=== PATIENT | male | born 1945 | race Caucasian/White ===

== ENCOUNTER → 2016-05-27 | Outpatient (CLI) | payer BC ==
--- NOTE | 2016-05-27 10:29 | XR ---
EXAMINATION TYPE: XR ribs LT w pa chest xray DATE OF EXAM: 05/27/2016 10:20 AM COMPARISON: NONE HISTORY: Chest pain TECHNIQUE: Frontal view of the chest and 4 views of the left ribs are submitted. FINDINGS: There is no pneumothorax. Biapical pleural thickening. Hypertrophic and degenerative change of the spine. No consolidation. Rib cage is intact. IMPRESSION: 1. No acute rib fracture.
== END | disposition home or self-care (01) ==
LOC: RADXRMAIN 10:00
PROVIDERS: ATTEND Family Medicine
DX: R07.89 Other chest pain (principal)

== ENCOUNTER 2016-10-23 20:06 | Inpatient (IN) | payer BC, MEDICARE ==
[2016-10-23] MEDS ORDERED: NITROGLYCERIN SL TABS 0.4 MG TAB SUBLINGUAL STA (20:35)
[2016-10-23 20:48] LABS: Basophils # (A) 0.1 k/uL (0-0.2); Basophils % (A) 1 %; CH 31.9; CHCM 35.4; Eosinophils # (A) 0.1 k/uL (0-0.7); Eosinophils % (A) 3 %; HCT 46.6 % (39.0-53.0); HDW 2.82; Luc % (Auto) 2; Lymphocytes # (A) 1.7 k/uL (1.0-4.8); Lymphocytes % (A) 39 %; MCH 31.2 pg (25.0-35.0); MCHC 34.4 g/dL (31.0-37.0); MCV 90.6 fL (80.0-100.0); Mean Platelet Volume 7.3; Monocytes # (A) 0.2 k/uL (0-1.0); Monocytes % (A) 5 %; Neutrophils # (A) 2.2 k/uL (1.3-7.7); Neutrophils % (A) 50 %; RBC 5.15 m/uL (4.30-5.90); RDW 14.5 % (11.5-15.5); WBC 4.5 k/uL (3.8-10.6); WBC (Perox) 4.25
--- NOTE | 2016-10-23 20:50 | XR ---
EXAMINATION TYPE: XR chest 2V DATE OF EXAM: 10/23/2016 COMPARISON: NONE HISTORY: Chest pain TECHNIQUE: Frontal and lateral views of the chest are obtained. FINDINGS: Heart and mediastinum are normal. Lungs are clear. Diaphragm is normal. There are chest le ads. Bony thorax is intact. IMPRESSION: Normal chest
[2016-10-23 20:56] LABS: INR 1.1 (<1.2); Prothrombin Time 11.4 sec (9.0-12.0)
[2016-10-23 20:59] LABS: ALT 37 U/L (21-72); AST 29 U/L (17-59); Alkaline Phosphatase 58 U/L (38-126); Anion Gap 12 mmol/L; Blood Urea Nitrogen 18 mg/dL (9-20); Calcium 9.5 mg/dL (8.4-10.2); Carbon Dioxide 26 mmol/L (22-30); Chloride 107 mmol/L (98-107); Glucose 116 mg/dL (74-99); Magnesium 2.2 mg/dL (1.6-2.3); Non-African American GFR(MDRD) >60 (>60 ml/min/1.73 sqM); Potassium 3.7 mmol/L (3.5-5.1); Sodium 145 mmol/L (137-145); Total Bilirubin 0.4 mg/dL (0.2-1.3); Total Protein 6.6 g/dL (6.3-8.2)
[2016-10-23] MEDS ORDERED: SODIUM CHLORIDE 0.9% 1,000 ML IV ONE (21:03)
[2016-10-23 21:10] LABS: Creatine Kinase 56 U/L (55-170)
[2016-10-23 21:23] LABS: Troponin I <0.012 ng/mL (0.000-0.034)
[2016-10-23] MEDS ORDERED: NITROGLYCERIN SL TABS 0.4 MG TAB SUBLINGUAL PRN (21:51)
[2016-10-23] MEDS ORDERED: HEPARIN SODIUM,PORCINE 5,000 UNIT/ML 1 ML VIAL IV ONE (21:51)
[2016-10-23] MEDS ORDERED: HEPARIN SODIUM,PORCINE/D5W PMX 25,000 UNIT in DEXTROSE/WATER 1 500ML.BAG IV SCH (22:00)
--- NOTE | 2016-10-23 22:04 | ED ---
General Adult HPI - General Chief complaint: Chest Pain Stated complaint: chest pain Time Seen by Provider: 10/23/16 20:10 Source: patient, family, RN notes reviewed Mode of arrival: ambulatory Limitations: no limitations - History of Present Illness Initial comments: 71-year-old male with no significant past medical history presents with an episode of chest pain that began about 6:30 PM. Patient was walking briskly noted a central substernal chest pressure which radiated to the bilateral shoulders. Is also associated with some dizziness. Patient denies current chest pain at the time of my evaluation. He also reports similar chest pain 3- 4 days ago but did not seek medical treatment at that time. Patient took 324 mg of aspirin prior to arrival. Denies cough. Denies fever or chills. Patient states he had a stress test about 25 years ago. No family history of coronary artery disease, he is a nonsmoker. - Related Data Home Medications Medication Instructions Recorded Confirmed Alprostadil [Caverject] 10 mcg IC Q48H PRN 10/23/16 10/23/16 Krill Oil 500 mg PO DAILY 10/23/16 10/23/16 Multivitamin [Men's Multi-Vitamin] 1 tab PO DAILY 10/23/16 10/23/16 ZOLMitriptan [ZOLMitriptan Odt] 5 mg PO BID PRN 10/23/16 10/23/16 Allergies Allergy/AdvReac Type Severity Reaction Status Date / Time iodine Allergy Unknown Verified 10/23/16 20:33 Iodinated Contrast- Oral and AdvReac Unknown Verified 10/23/16 20:33 IV Dye [Iodinated Contrast Media - IV Dye] Review of Systems ROS Statement: Those systems with pertinent positive or pertinent negative responses have been documented in the HPI. ROS Other: All systems not noted in ROS Statement are negative. Past Medical History Past Medical History: No Reported History, Prostate Disorder Additional Past Medical History / Comment(s): prostate cancer History of Any Multi-Drug Resistant Organisms: None Reported Past Surgical History: No Surgical Hx Reported Past Psychological History: No Psychological Hx Reported Smoking Status: Never smoker Past Alcohol Use History: None Reported Past Drug Use History: None Reported General Exam Limitations: no limitations General appearance: alert, in no apparent distress Head exam: Present: atraumatic, normocephalic Eye exam: Present: normal appearance, PERRL ENT exam: Present: normal exam, mucous membranes dry Neck exam: Present: normal inspection. Absent: tenderness, meningismus Respiratory exam: Present: normal lung sounds bilaterally. Absent: respiratory distress, wheezes Cardiovascular Exam: Present: regular rate, normal rhythm, normal heart sounds GI/Abdominal exam: Present: soft. Absent: distended, tenderness Rectal exam: Present: normal inspection, heme (-) stool Extremities exam: Present: normal inspection, normal capillary refill, other (2 + bilateral pedal pulses) Back exam: Present: normal inspection, full ROM Neurological exam: Present: alert, oriented X3 Psychiatric exam: Present: normal affect, normal mood Skin exam: Present: warm, dry. Absent: cyanosis, diaphoretic Course Vital Signs 10/23/16 10/23/16 10/23/16 20:12 20:55 20:59 Temperature 98.2 F Pulse Rate 90 Respiratory 17 Rate Blood Pressure 189/103 164/88 140/85 O2 Sat by Pulse 97 Oximetry - Reevaluation(s) Reevaluation #1: 10/23/16 22:00 Patient remains chest pain-free in the emergency department EKG Findings - EKG Comments: EKG Findings:: EKG shows normal sinus rhythm, ventricular rate 68, NE interval 148, QRS duration 84, QTC 418, there was J-point elevation in leads V2 and V3, no signs of acute ischemia Medical Decision Making - Medical Decision Making 71-year-old male presents with chest pain radiating to bilateral shoulders associated with some dizziness. The second episode of exertional chest pain. Patient has no known history of angina or coronary artery disease. Chest pain is typical in nature. An concerning for anginal pain. He was chest pain-free in the emergency department. He took aspirin prior to arrival he was given sublingual nitroglycerin, Hemoccult is negative. Patient is started on heparin drip. EKG nonischemic. Chest x-ray shows no acute process, laboratory studies including initial cardiac enzymes are unremarkable. Case is discussed with cardiology on-call. Patient will be kept nothing by mouth awaiting cardiology evaluation. Diagnosis: Unstable angina - Lab Data Result diagrams: 10/23/16 20:15 10/23/16 20:15 Lab Results 10/23/16 10/23/16 10/23/16 Range/Units 20:15 20:15 20:15 WBC 4.5 (3.8-10.6) k/uL RBC 5.15 (4.30-5.90) m/uL Hgb 16.0 (13.0-17.5) gm/dL Hct 46.6 (39.0-53.0) % MCV 90.6 (80.0-100.0) fL MCH 31.2 (25.0-35.0) pg MCHC 34.4 (31.0-37.0) g/dL RDW 14.5 (11.5-15.5) % Plt Count 159 (150-450) k/uL Neutrophils % 50 % Lymphocytes % 39 % Monocytes % 5 % Eosinophils % 3 % Basophils % 1 % Neutrophils # 2.2 (1.3-7.7) k/uL Lymphocytes # 1.7 (1.0-4.8) k/uL Monocytes # 0.2 (0-1.0) k/uL Eosinophils # 0.1 (0-0.7) k/uL Basophils # 0.1 (0-0.2) k/uL PT (9.0-12.0) sec INR (<1.2) APTT (22.0-30.0) sec Sodium 145 (137-145) mmol/L Potassium 3.7 (3.5-5.1) mmol/L Chloride 107 (98-107) mmol/L Carbon Dioxide 26 (22-30) mmol/L Anion Gap 12 mmol/L BUN 18 (9-20) mg/dL Creatinine 0.90 (0.66-1.25) mg/dL Est GFR (MDRD) Af Amer >60 (>60 ml/min/1.73 sqM) Est GFR (MDRD) Non-Af >60 (>60 ml/min/1.73 sqM) Glucose 116 H (74-99) mg/dL Calcium 9.5 (8.4-10.2) mg/dL Magnesium 2.2 (1.6-2.3) mg/dL Total Bilirubin 0.4 (0.2-1.3) mg/dL AST 29 (17-59) U/L ALT 37 (21-72) U/L Alkaline Phosphatase 58 (38-126) U/L Total Creatine Kinase 56 (55-170) U/L CK-MB (CK-2) 1.0 (0.0-2.4) ng/mL CK-MB (CK-2) Rel Index 1.8 Troponin I <0.012 (0.000-0.034) ng/mL Total Protein 6.6 (6.3-8.2) g/dL Albumin 4.1 (3.5-5.0) g/dL Stool Occult Blood (Negative) 10/23/16 10/23/16 Range/Units 20:15 21:13 WBC (3.8-10.6) k/uL RBC (4.30-5.90) m/uL Hgb (13.0-17.5) gm/dL Hct (39.0-53.0) % MCV (80.0-100.0) fL MCH (25.0-35.0) pg MCHC (31.0-37.0) g/dL RDW (11.5-15.5) % Plt Count (150-450) k/uL Neutrophils % % Lymphocytes % % Monocytes % % Eosinophils % % Basophils % % Neutrophils # (1.3-7.7) k/uL Lymphocytes # (1.0-4.8) k/uL Monocytes # (0-1.0) k/uL Eosinophils # (0-0.7) k/uL Basophils # (0-0.2) k/uL PT 11.4 (9.0-12.0) sec INR 1.1 (<1.2) APTT 26.0 (22.0-30.0) sec Sodium (137-145) mmol/L Potassium (3.5-5.1) mmol/L Chloride (98-107) mmol/L Carbon Dioxide (22-30) mmol/L Anion Gap mmol/L BUN (9-20) mg/dL Creatinine (0.66-1.25) mg/dL Est GFR (MDRD) Af Amer (>60 ml/min/1.73 sqM) Est GFR (MDRD) Non-Af (>60 ml/min/1.73 sqM) Glucose (74-99) mg/dL Calcium (8.4-10.2) mg/dL Magnesium (1.6-2.3) mg/dL Total Bilirubin (0.2-1.3) mg/dL AST (17-59) U/L ALT (21-72) U/L Alkaline Phosphatase (38-126) U/L Total Creatine Kinase (55-170) U/L CK-MB (CK-2) (0.0-2.4) ng/mL CK-MB (CK-2) Rel Index Troponin I (0.000-0.034) ng/mL Total Protein (6.3-8.2) g/dL Albumin (3.5-5.0) g/dL Stool Occult Blood Negative (Negative) Disposition Clinical Impression: Unstable angina pectoris Disposition: ADMITTED IP TO THIS HOSP Condition: Stable Referrals: Jackie Maddox III, MD [Primary Care Provider] - 1-2 days Decision to Admit Reason: Admit from EC Decision Date: 10/23/16 Decision Time: 22:03
[2016-10-23] MEDS ORDERED: NITROGLYCERIN-D5W PMX 50 MG in DEXTROSE/WATER 1 250ML.BAG IV ONE (22:06)
[2016-10-23] MEDS: SODIUM CHLORIDE 0.9% 1,000 ML IV SCH (22:35)
[2016-10-23 23:00] VITALS: BMI 26.1
[2016-10-24] MEDS ORDERED: ACETAMINOPHEN TAB 325 MG TAB PO PRN (01:11)
[2016-10-24 01:56] LABS: Creatine Kinase 45 U/L (55-170)
[2016-10-24 02:09] LABS: Troponin I <0.012 ng/mL (0.000-0.034)
[2016-10-24] MEDS ORDERED: IBUPROFEN 400 MG TAB PO PRN (03:46)
[2016-10-24] MEDS: SUMAtriptan SUCCINATE 50 MG TAB PO PRN (04:53)
[2016-10-24] MEDS: NITROGLYCERIN OINT 1 INCH/GM PACKET TOPICAL SCH ×4 (04:55→22:39)
[2016-10-24] MEDS ORDERED: HEPARIN SODIUM,PORCINE 5,000 UNIT/ML 1 ML VIAL IV PRN (05:33)
[2016-10-24 06:32] LABS: Cholesterol 139 mg/dL (<200); HDL Cholesterol 27 mg/dL (40-60)
[2016-10-24] MEDS: SODIUM CHLORIDE 0.9% 1,000 ML IV SCH (08:00)
[2016-10-24] MEDS: ASPIRIN 325 MG TAB PO SCH (08:00)
[2016-10-24 09:14] LABS: Creatine Kinase 48 U/L (55-170)
--- NOTE | 2016-10-24 09:30 | P.CRDCN ---
History of Present Illness Consult date: 10/24/16 Requesting physician: Liana Xavier Consult reason: chest pain Chief complaint: Chest pain History of present illness: This is a pleasant 71-year-old gentleman with no prior documented history of hypertension, no diabetes, no hyperlipidemia, he is a nonsmoker, no family history of premature coronary artery disease. He presents to the hospital with symptoms of midsternal chest tightness. Patient states that he was at a [employer] [place], he was walking to go to the service, when he developed tightness in the center of his chest and across the entire chest. He states that he rested a few minutes and symptoms seemed to subside, he states then that he proceeded to try to walk back to his camper and the tightness resumed, a female who is an ICU nurse apparently seen him at that time, and recommended that he go to the emergency room for further evaluation. Patient states that 2- 3 days prior he had a similar episode however it only lasted briefly and dissipated. Patient denies any associated shortness of breath, no diaphoresis, no nausea. EKG on arrival here showed a normal sinus rhythm with mild ST-T wave changes in the anterior leads. Chest x-ray normal. Blood pressure on arrival here 189/103, heart rate in the 90s, 97% on room air. Chest x-ray this morning 156/80 with a heart rate in the 70s. CBC normal, potassium 3.7, BUN 18 , creatinine 0.9. Troponins negative 2. Stool for occult blood is negative. At the time of my examination this morning, the patient is currently chest pain- free. Past Medical History Past Medical History: Prostate Disorder Additional Past Medical History / Comment(s): prostate cancer History of Any Multi-Drug Resistant Organisms: None Reported Past Surgical History: No Surgical Hx Reported Past Psychological History: No Psychological Hx Reported Smoking Status: Former smoker Past Alcohol Use History: None Reported Additional Past Alcohol Use History / Comment(s): smoke for 1 year in his 20s then quit Past Drug Use History: None Reported - Past Family History Father Additional Family Medical History / Comment(s): dad living alone at 94, pacemaker Mother Family Medical History: Dementia Medications and Allergies Home Medications Medication Instructions Recorded Confirmed Type Alprostadil [Caverject] 10 mcg IC Q48H PRN 10/23/16 10/23/16 History Krill Oil 500 mg PO DAILY 10/23/16 10/23/16 History Multivitamin [Men's Multi-Vitamin] 1 tab PO DAILY 10/23/16 10/23/16 History ZOLMitriptan [ZOLMitriptan Odt] 5 mg PO BID PRN 10/23/16 10/23/16 History Allergies Allergy/AdvReac Type Severity Reaction Status Date / Time iodine Allergy Unknown Verified 10/23/16 20:33 Iodinated Contrast- Oral and AdvReac Unknown Verified 10/23/16 20:33 IV Dye [Iodinated Contrast Media - IV Dye] Physical Exam Vitals: Vital Signs Temp Pulse Pulse Resp BP BP Pulse Ox 10/24/16 08:00 97.9 F 70 18 157/82 97 10/24/16 04:00 58 L 18 125/64 98 10/24/16 01:15 66 116/76 97 10/24/16 00:00 96.1 F L 58 L 18 125/70 97 10/23/16 22:39 63 18 131/71 98 10/23/16 22:34 98.0 F 75 16 139/80 98 10/23/16 20:59 140/85 10/23/16 20:55 164/88 10/23/16 20:12 98.2 F 90 17 189/103 97 Intake and Output 10/23/16 10/24/16 10/24/16 22:59 06:59 14:59 Intake Total 967 Output Total 300 Balance 667 Intake: IV 963 Heparin Sodium,Porcine/ 160 D5w Pmx 25,000 unit In Dextrose/Water 1 500ml. bag @ 12 UNITS/KG/HR 19. 59 mls/hr IV .Q24H [facility] Rx #:[id number] Nitroglycerin-D5w Pmx 50 3 mg In Dextrose/Water 1 250ml.bag @ 5 MCG/MIN 1.5 mls/hr IV .Q24H [facility] Rx#: [id number] Sodium Chloride 0.9% 1, 800 000 ml @ 100 mls/hr IV . Q10H [facility] Rx#:[id number] Intake, IV Titration 4 Amount Nitroglycerin-D5w Pmx 50 4 mg In Dextrose/Water 1 250ml.bag @ 5 MCG/MIN 1.5 mls/hr IV .Q24H [facility] Rx#: [id number] Output: Urine 300 Other: Voiding Method Toilet Toilet Urinal Urinal # Voids 1 Weight 82.5 kg 82.5 kg PHYSICAL EXAMINATION: HEENT: Head is atraumatic, normocephalic. Pupils equal, round. Neck is supple. There is no elevated jugular venous pressure. HEART EXAMINATION: Heart S1, S2 normal. No murmur or gallop heard. CHEST EXAMINATION: Lungs are clear to auscultation and precussion. No chest wall tenderness is noted on palpation or with deep breathing. ABDOMEN: Soft, nontender. Bowel sounds are heard. No organomegaly noted. EXTREMITIES: 2+ peripheral pulses with no evidence of peripheral edema and no calf tenderness noted. NEUROLOGIC patient is awake, alert and oriented -3. . Results 10/23/16 20:15 10/23/16 20:15 Cardiac Enzymes 10/23/16 10/23/16 10/24/16 Range/Units 20:15 20:15 01:19 AST 29 (17-59) U/L CK-MB (CK-2) 1.0 1.0 (0.0-2.4) ng/mL Troponin I <0.012 <0.012 (0.000-0.034) ng/mL Coagulation 10/23/16 10/24/16 Range/Units 20:15 05:50 PT 11.4 (9.0-12.0) sec APTT 26.0 72.6 H (22.0-30.0) sec Lipids 10/24/16 Range/Units 05:48 Triglycerides 121 (<150) mg/dL Cholesterol 139 (<200) mg/dL HDL Cholesterol 27 L (40-60) mg/dL CBC 10/23/16 Range/Units 20:15 WBC 4.5 (3.8-10.6) k/uL RBC 5.15 (4.30-5.90) m/uL Hgb 16.0 (13.0-17.5) gm/dL Hct 46.6 (39.0-53.0) % Plt Count 159 (150-450) k/uL Comprehensive Metabolic Panel 10/23/16 Range/Units 20:15 Sodium 145 (137-145) mmol/L Potassium 3.7 (3.5-5.1) mmol/L Chloride 107 (98-107) mmol/L Carbon Dioxide 26 (22-30) mmol/L BUN 18 (9-20) mg/dL Creatinine 0.90 (0.66-1.25) mg/dL Glucose 116 H (74-99) mg/dL Calcium 9.5 (8.4-10.2) mg/dL AST 29 (17-59) U/L ALT 37 (21-72) U/L Alkaline Phosphatase 58 (38-126) U/L Total Protein 6.6 (6.3-8.2) g/dL Albumin 4.1 (3.5-5.0) g/dL Current Medications Generic Name Dose Route Start Last Admin Trade Name Freq PRN Reason Stop Dose Admin Acetaminophen 650 mg 10/24/16 01:11 10/24/16 01:17 Tylenol Tab PO 650 mg Q6HR PRN Administration Fever and/ or Pain Aspirin 325 mg 10/24/16 09:00 10/24/16 08:00 Aspirin PO 325 mg DAILY TEE Administration Atorvastatin Calcium 40 mg 10/24/16 21:00 Lipitor PO HS [facility] Heparin Sodium (Porcine) 0 unit 10/24/16 05:33 Heparin IV PER PROTOCOL PRN Low PTT Protocol Heparin Sodium/Dextrose 25,000 500 mls @ 19.59 mls/hr 10/23/16 22:00 22:35 unit/ IV Solution IV 12 units/kg/hr .Q24H TEE 19.59 mls/hr Protocol Administration 12 UNITS/KG/HR Sodium Chloride 1,000 mls @ 100 mls/hr 10/23/16 22:00 10/24/16 08:00 Saline 0.9% IV 100 mls/hr .Q10H TEE Administration Ibuprofen 600 mg 10/24/16 03:46 Motrin PO Q6HR PRN Pain Nitroglycerin 0.4 mg 10/23/16 21:51 Nitrostat SUBLINGUAL Q5M PRN Chest Pain Nitroglycerin 1 inch 10/24/16 06:00 10/24/16 04:55 Nitro-Bid Oint TOPICAL Not Given Q6HR [facility] Sumatriptan Succinate 50 mg 10/24/16 03:42 10/24/16 04:53 Imitrex PO 50 mg BID PRN Administration Migraine Headache Intake and Output 10/23/16 10/24/16 10/24/16 22:59 06:59 14:59 Intake Total 967 Output Total 300 Balance 667 Intake: IV 963 Heparin Sodium,Porcine/ 160 D5w Pmx 25,000 unit In Dextrose/Water 1 500ml. bag @ 12 UNITS/KG/HR 19. 59 mls/hr IV .Q24H [facility] Rx #:[id number] Nitroglycerin-D5w Pmx 50 3 mg In Dextrose/Water 1 250ml.bag @ 5 MCG/MIN 1.5 mls/hr IV .Q24H [facility] Rx#: [id number] Sodium Chloride 0.9% 1, 800 000 ml @ 100 mls/hr IV . Q10H [facility] Rx#:[id number] Intake, IV Titration 4 Amount Nitroglycerin-D5w Pmx 50 4 mg In Dextrose/Water 1 250ml.bag @ 5 MCG/MIN 1.5 mls/hr IV .Q24H [facility] Rx#: [id number] Output: Urine 300 Other: Voiding Method Toilet Toilet Urinal Urinal # Voids 1 Weight 82.5 kg 82.5 kg 10/23/16 20:15 10/23/16 20:15 EKG Interpretations (text) EKG shows a normal sinus rhythm with nonspecific ST-T wave changes in the anterior leads. Assessment and Plan Plan: Assessment and plan #1 symptoms of midsternal chest tightness, troponins negative 2. EKG shows a normal sinus rhythm with nonspecific ST-T wave changes in the anterior leads. #2 cardiac risk factors negative for hypertension, no diabetes, no hyperlipidemia, patient is a nonsmoker, no family history of premature coronary artery disease. #3 accelerated hypertension Plan We will request an echocardiogram with Doppler study be performed. We will also start the patient on OSWALDO inhibitor for hypertension. Continue IV heparin and Nitropaste. Further recommendations to follow. DNP note has been reviewed, I agree with a documented findings and plan of care. Patient was seen and examined.
[2016-10-24 09:50] LABS: Troponin I <0.012 ng/mL (0.000-0.034)
[2016-10-24] MEDS: LISINOPRIL 5 MG TAB PO SCH (11:23)
--- NOTE | 2016-10-24 13:58 | NM ---
EXAMINATION TYPE: NM stress cardiolite complete DATE OF EXAM: 10/24/2016 COMPARISON: Chest x-ray 10/23/2016 HISTORY: Chest pain TECHNIQUE: After the intravenous administration of 10.56 mCi Tc 99m Sestamibi - Rest images obtained 45 minutes post injection. The patient exercised using a CARLY protocol and 1 minute prior to peak exercise was injected with 25.4 mCi Tc 99m Sestamibi - Stress images obtained 20 minutes post inject ion. FINDINGS: Targeted heart rate was achieved during performance of the study. Review of stress and rest SPECT yovani ges demonstrates some mild decreased radiopharmaceutical uptake along the anteroseptal left ventricle on stress images as compared to rest images as well as along the inferolateral left ventricle on str ess as compared to rest images. Gated analysis shows normal wall motion with an estimated left ventr icular ejection fraction of 63 %. IMPRESSION: Findings may be indicative of stress induced left ventricular myocardial ischemia. Normal to slightly elevated ejection fraction however.
[2016-10-24] MEDS ORDERED: ALPRAZolam 0.5 MG TAB PO PRN (14:28)
[2016-10-24] MEDS ORDERED: ASPIRIN 325 MG TAB PO STA (14:28)
[2016-10-24] MEDS ORDERED: ATORVASTATIN 80 MG TAB PO STA (14:28)
[2016-10-24] MEDS ORDERED: ALPRAZolam 0.25 MG TAB PO PRN (14:28)
[2016-10-24] MEDS ORDERED: SODIUM CHLORIDE 0.9% 1,000 ML in EMPTY BAG 1 BAG IV ONE (14:28)
--- NOTE | 2016-10-24 16:40 | P.HPIM ---
History of Present Illness H&P Date: 10/24/16 Chief Complaint: Chest pain She is a 71-year-old gentleman with history of essential hypertension comes in to the hospital with complains of intermittent chest pain that has been ongoing for the last 7 days. Patient states that initially he noted a midsternal burning pain that resolved with rest thereafter went on to continuing moving his trailer which included some physical work Patient stated that he noted recurrence of the symptoms with worsening with the exertion and relieved with rest Patient comes in the hospital with concern for heart disease Patient underwent an EKG which the did show some nonspecific ST-T wave changes however nothing meets criteria Patient's cardiac enzymes were not elevated Patient was heparinized and triaged to the floor Patient underwent a stress test. Patient continues to have some chest pain that is atypical at this time Review of Systems All systems: negative (Noted in HPI) Past Medical History Past Medical History: Prostate Disorder Additional Past Medical History / Comment(s): prostate cancer History of Any Multi-Drug Resistant Organisms: None Reported Past Surgical History: No Surgical Hx Reported Past Psychological History: No Psychological Hx Reported Smoking Status: Former smoker Past Alcohol Use History: None Reported Additional Past Alcohol Use History / Comment(s): smoke for 1 year in his 20s then quit Past Drug Use History: None Reported - Past Family History Father Additional Family Medical History / Comment(s): dad living alone at 94, pacemaker Mother Family Medical History: Dementia Medications and Allergies Home Medications Medication Instructions Recorded Confirmed Type Alprostadil [Caverject] 10 mcg IC Q48H PRN 10/23/16 10/23/16 History Krill Oil 500 mg PO DAILY 10/23/16 10/23/16 History Multivitamin [Men's Multi-Vitamin] 1 tab PO DAILY 10/23/16 10/23/16 History ZOLMitriptan [ZOLMitriptan Odt] 5 mg PO BID PRN 10/23/16 10/23/16 History Allergies Allergy/AdvReac Type Severity Reaction Status Date / Time iodine Allergy Unknown Verified 10/23/16 20:33 Iodinated Contrast- Oral and AdvReac Unknown Verified 10/23/16 20:33 IV Dye [Iodinated Contrast Media - IV Dye] Physical Exam Vitals: Vital Signs Temp Pulse Pulse Resp BP BP Pulse Ox 10/24/16 11:15 97.4 F L 69 18 169/82 98 10/24/16 08:00 97.9 F 70 18 157/82 97 10/24/16 04:00 58 L 18 125/64 98 10/24/16 01:15 66 116/76 97 10/24/16 00:00 96.1 F L 58 L 18 125/70 97 10/23/16 22:39 63 18 131/71 98 10/23/16 22:34 98.0 F 75 16 139/80 98 10/23/16 20:59 140/85 10/23/16 20:55 164/88 10/23/16 20:12 98.2 F 90 17 189/103 97 Intake and Output 10/24/16 10/24/16 10/24/16 06:59 14:59 22:59 Intake Total 967 Output Total 300 425 Balance 667 -425 Intake: IV 963 Heparin Sodium,Porcine/ 160 D5w Pmx 25,000 unit In Dextrose/Water 1 500ml. bag @ 12 UNITS/KG/HR 19. 59 mls/hr IV .Q24H [facility] Rx #:[id number] Nitroglycerin-D5w Pmx 50 3 mg In Dextrose/Water 1 250ml.bag @ 5 MCG/MIN 1.5 mls/hr IV .Q24H [facility] Rx#: [id number] Sodium Chloride 0.9% 1, 800 000 ml @ 100 mls/hr IV . Q10H [facility] Rx#:[id number] Intake, IV Titration 4 Amount Nitroglycerin-D5w Pmx 50 4 mg In Dextrose/Water 1 250ml.bag @ 5 MCG/MIN 1.5 mls/hr IV .Q24H [facility] Rx#: [id number] Output: Urine 300 425 Other: Voiding Method Toilet Toilet Urinal Urinal Weight 82.5 kg Physical exam Gen. appearance oriented 3 in no distress Neck is supple no JVD Lungs good air entry clear to auscultation no rhonchi or wheezing Heart S1-S2 heard regular rate and rhythm no murmurs appreciated Abdomen is soft nontender no organomegaly bowel sounds are intact Neurologically cranial nerves II-12 grossly intact no focal motor or sensory deficits noted Skin no abnormalities appreciated Results CBC & Chem 7: 10/23/16 20:15 10/23/16 20:15 Labs: Abnormal Lab Results - Last 24 Hours (Table) 10/23/16 10/24/16 10/24/16 Range/Units 20:15 01:19 05:48 APTT (22.0-30.0) sec Glucose 116 H (74-99) mg/dL Total Creatine Kinase 45 L (55-170) U/L HDL Cholesterol 27 L (40-60) mg/dL 10/24/16 10/24/16 Range/Units 05:50 08:38 APTT 72.6 H (22.0-30.0) sec Glucose (74-99) mg/dL Total Creatine Kinase 48 L (55-170) U/L HDL Cholesterol (40-60) mg/dL Thrombosis Risk Factor Assmnt - Choose All That Apply Each Risk Factor Represents 2 Points: Age 61-74 years Thrombosis Risk Factor Assessment Total Risk Factor Score: 2 Thrombosis Risk Factor Assessment Level: Low Risk Assessment and Plan Plan: Chest pain with the some typical features #2 essential hypertension #3 BPH #4 history of migraines Plan Patient underwent a stress test will likely need a cardiac catheterization at this time Continue with the blood pressure control vitals are stable
--- NOTE | 2016-10-24 16:58 | P.STRESS ---
- Stress Test Note Stress Test Results/Findings: Exam Performed: NM stress cardiolite complete Exam Date: 10/24/16 Reason for Exam: Chest pain Height: 5 ft 10 in Weight: 82.5 kg Protocol: Cardiolite florian Stage: 2 Duration of Exercise: 7:21 Resting Heart Rate: 73 Resting Blood Pressure: 153/83 Maximum Achieved Heart Rate: 137 Maximum Achieved Blood Pressure: 207/84 85% PMHR: 128 100% PMHR: 150 METS: 8.9 Technologist Comment: Stress Test Results/Findings: Resting EKG is also normal sinus rhythm with normal TN interval and QRS duration and normal ST-T waves during exercise about [address] segment depression suggestive ischemia is noted occasional PVCs were noted in complain of mild burning in the chest suggestive of angina. Conclusion this test shows a [address] segment depression suggestive ischemia associated with the symptoms of angina. Correlation with the nuclear study is suggested.
[2016-10-24] MEDS ORDERED: ATORVASTATIN 40 MG TAB PO SCH (21:00)
[2016-10-24] MEDS ORDERED: methylPREDNISolone SOD SUCCI 125 MG/2 ML VIAL IV STA (21:22)
[2016-10-25] MEDS ORDERED: methylPREDNISolone SOD SUCCI 125 MG/2 ML VIAL IV ONE (05:00)
[2016-10-25] MEDS: LISINOPRIL 5 MG TAB PO SCH (05:52)
[2016-10-25] MEDS: ASPIRIN 325 MG TAB PO SCH (05:53)
[2016-10-25] MEDS: NITROGLYCERIN SL TABS 0.4 MG TAB SUBLINGUAL PRN ×3 (05:54→06:07)
[2016-10-25] MEDS ORDERED: ATORVASTATIN 80 MG TAB PO ONE (06:00)
[2016-10-25] MEDS: NITROGLYCERIN OINT 1 INCH/GM PACKET TOPICAL SCH ×3 (06:09→14:46)
[2016-10-25] MEDS ORDERED: HYDROmorphone 1 MG/ML 1 ML SYRINGE IVP STA (06:13)
[2016-10-25] MEDS ORDERED: HYDROmorphone 1 MG/ML 1 ML SYRINGE ONE (06:16)
[2016-10-25] MEDS ORDERED: HEPARIN SODIUM,PORCINE 5,000 UNIT/ML 1 ML VIAL IV PRN (06:41)
[2016-10-25] MEDS ORDERED: HEPARIN SODIUM,PORCINE 5,000 UNIT/ML 1 ML VIAL IV ONE (06:41)
[2016-10-25] MEDS ORDERED: HEPARIN SODIUM,PORCINE/D5W PMX 25,000 UNIT in DEXTROSE/WATER 1 500ML.BAG IV SCH (06:45)
[2016-10-25] MEDS ORDERED: diphenhydrAMINE 50 MG/ML 1 ML VIAL IVP ONE (07:00)
--- NOTE | 2016-10-25 07:51 | EST ---
Stress Test Results/Findings: Exam Performed: NM stress cardiolite complete Exam Date: 10/24/16 Reason for Exam: Chest pain Height: 5 ft 10 in Weight: 82.5 kg Protocol: Cardiolite florian Stage: 2 Duration of Exercise: 7:21 Resting Heart Rate: 73 Resting Blood Pressure: 153/83 Maximum Achieved Heart Rate: 137 Maximum Achieved Blood Pressure: 207/84 85% PMHR: 128 100% PMHR: 150 METS: 8.9 Technologist Comment: Stress Test Results/Findings: Resting EKG is also normal sinus rhythm with normal NC interval and QRS duration and normal ST-T waves during exercise about [address] segment depression suggestive ischemia is noted occasional PVCs were noted in complain of mild burning in the chest suggestive of angina. Conclusion this test shows a [address] segment depression suggestive ischemia associated with the symptoms of angina. Correlation with the nuclear study is suggested. WILLIED
[2016-10-25] MEDS ORDERED: VERAPAMIL 2.5 MG/ML 2 ML AMP ONE (07:56)
[2016-10-25] MEDS ORDERED: MIDAZOLAM 2 MG/2 ML VIAL ONE (07:56)
[2016-10-25] MEDS ORDERED: LIDOCAINE 2% INJ 20 MG/ML (20 ML MDV) ONE (07:56)
[2016-10-25] MEDS ORDERED: SODIUM CHLORIDE 0.9% 1,000 ML IV ONE (08:11)
[2016-10-25] MEDS ORDERED: MIDAZOLAM 2 MG/2 ML VIAL IVP ONE (08:24)
[2016-10-25] MEDS ORDERED: LIDOCAINE 2% INJ 20 MG/ML SQ ONE (08:25)
[2016-10-25] MEDS ORDERED: BIVALIRUDIN 250 MG in SODIUM CHLORIDE 0.9% 50 ML IV ONE (08:35)
[2016-10-25] MEDS ORDERED: BIVALIRUDIN BOLUS 250 MG/50 ML IV ONE (08:35)
[2016-10-25] MEDS ORDERED: NITROGLYCERIN 1000MCG/10ML SYRINGE INTRACORON ONE (08:40)
[2016-10-25] MEDS ORDERED: PRASUGREL 10 MG TAB ONE (08:44)
[2016-10-25] MEDS ORDERED: PRASUGREL 10 MG TAB PO ONE (08:47)
[2016-10-25] MEDS ORDERED: IOHEXOL 350 MG/ML 100 ML BOTTLE INJ ONE (08:52)
[2016-10-25] MEDS ORDERED: NITROGLYCERIN SL TABS 0.4 MG TAB SUBLINGUAL PRN (08:56)
[2016-10-25] MEDS ORDERED: ZOLPIDEM 5 MG TAB PO PRN (08:56)
[2016-10-25] MEDS ORDERED: MAG HYDROX/AL HYDROX/SIMETH 30 ML CUP PO PRN (08:56)
[2016-10-25] MEDS ORDERED: RX INFO: IV CONTRAST WAS GIVEN 1 EACH MISC MISCELLANE PRN (08:56)
[2016-10-25] MEDS ORDERED: ATROPINE SULFATE 0.1 MG/ML 10ML SYRINGE IV PRN (08:56)
[2016-10-25] MEDS ORDERED: SODIUM CHLORIDE 0.9% 1,000 ML IV SCH (09:00)
[2016-10-25] MEDS ORDERED: IBUPROFEN 600 MG TAB PO PRN (09:05)
[2016-10-25] MEDS: SUMAtriptan SUCCINATE 50 MG TAB PO PRN (10:33)
--- NOTE | 2016-10-25 11:06 | ECHOF ---
Referral Reason:chest pain MEASUREMENTS -------- HEIGHT: 0.0 cm WEIGHT: 0.0 kg BP: 157/82 RVIDd: 3.1 cm (< 3.3) IVSd: 1.2 cm (0.6 - 1.1) LVIDd: 4.6 cm (3.9 - 5.3) LVPWd: 1.1 cm (0.6 - 1.1) IVSs: 1.6 cm LVIDs: 3.1 cm LVPWs: 1.7 cm LA Diam: 3.3 cm (2.7 - 3.8) LAESV Index (A-L): 31.88 ml/m Ao Diam: 3.6 cm (2.0 - 3.7) AV Cusp: 2.4 cm (1.5 - 2.6) MV EXCURSION: 18.221 mm (> 18.000) MV EF SLOPE: 30 mm/s (70 - 150) EPSS: 0.4 cm MV E Prakash: 0.65 m/s MV DecT: 241 ms MV A Prakash: 0.72 m/s MV E/A Ratio: 0.90 AR PHT: 1001 ms RAP: 5.00 mmHg RVSP: 34.67 mmHg FINDINGS -------- Sinus rhythm. This was a technically good study. The left ventricular size is normal. There is borderline concentric left ventricular hypertrophy. Overall left ventricular systolic function is normal with, an EF between 55 - 60 %. The right ventricle is normal in size. LA is midly dilated 29-33ml/m2. The right atrium is normal in size. The aortic valve is trileaflet and appears structurally normal. There is mild aortic regurgitation. There is trace to mild mitral regurgitation. Mild tricuspid regurgitation present. There is mild pulmonary hypertension. The right ventricular systolic pressure, as measured by Doppler, is 34.67mmHg. Trace/mild (physiologic) pulmonic regurgitation. The aortic root size is normal. Normal inferior vena cava with normal inspiratory collapse consistent with estimated right atrial pressure of 5 mmHg. There is no pericardial effusion. CONCLUSIONS -------- 1. Sinus rhythm. 2. There is trace to mild mitral regurgitation. 3. Mild tricuspid regurgitation present. 4. There is mild pulmonary hypertension. 5. The right ventricular systolic pressure, as measured by Doppler, is 34.67mmHg. 6. Trace/mild (physiologic) pulmonic regurgitation. 7. The aortic root size is normal. 8. Normal inferior vena cava with normal inspiratory collapse consistent with estimated right atrial pressure of 5 mmHg. 9. There is no pericardial effusion. 10. This was a technically good study. 11. The left ventricular size is normal. 12. There is borderline concentric left ventricular hypertrophy. 13. The right ventricle is normal in size. 14. LA is midly dilated 29-33ml/m2. 15. The right atrium is normal in size. 16. The aortic valve is trileaflet and appears structurally normal. 17. There is mild aortic regurgitation. FLEET ADMINISTRATIVE ASSISTANT: Giselle Madrigal RDCS
--- NOTE | 2016-10-25 14:10 | P.PN ---
Subjective She is a 71-year-old gentleman with history of essential hypertension comes in to the hospital with complains of intermittent chest pain that has been ongoing for the last 7 days. Patient states that initially he noted a midsternal burning pain that resolved with rest thereafter went on to continuing moving his trailer which included some physical work Patient stated that he noted recurrence of the symptoms with worsening with the exertion and relieved with rest Patient comes in the hospital with concern for heart disease Patient underwent an EKG which the did show some nonspecific ST-T wave changes however nothing meets criteria Patient's cardiac enzymes were not elevated Patient was heparinized and triaged to the floor Patient underwent a stress test. Patient continues to have some chest pain that is atypical at this time 10/25/2016 Patient is seen after the catheterization States that he had another episode with the ambulation with severe burning in his pain This is prior to the episode underwent a cardiac cath via the right groin. Neck is supple no JVD Lungs good air entry clear to auscultation no rhonchi or wheezing Heart S1-S2 heard regular rate and rhythm no murmurs appreciated Abdomen is soft nontender no organomegaly bowel sounds are intact Neurologically cranial nerves II-12 grossly intact no focal motor or sensory deficits noted Skin no abnormalities appreciated Objective - Vital Signs Vital signs: Vital Signs Temp 97.9 F 10/25/16 12:00 Pulse 68 10/25/16 06:00 Resp 18 10/25/16 12:00 BP 131/75 10/25/16 12:43 Pulse Ox 97 10/25/16 12:00 Intake & Output 10/24/16 10/25/16 10/25/16 18:59 06:59 18:59 Intake Total 222 960 992 Output Total 425 1100 500 Balance -203 -140 492 Weight 81.1 kg Intake: IV 960 130 Sodium Chloride 0.9% 1, 960 000 ml @ 100 mls/hr IV . Q10H TEE Rx#:[id number] Intake, IV Titration 400 Amount Sodium Chloride 0.9% 1, 400 000 ml @ 100 mls/hr IV . Q10H TEE Rx#:[id number] Oral 222 462 Output: Urine 425 1100 500 Other: Voiding Method Toilet Toilet Toilet Urinal Urinal Urinal # Voids 1 3 - Labs CBC & Chem 7: 10/23/16 20:15 10/23/16 20:15 Assessment and Plan Plan: Chest pain with the some typical features #2 essential hypertension #3 BPH #4 history of migraines Plan Blood pressures are controlled Vascular checks The likely be discharged in the next 24 hours. Telemetry monitoring encourage ambulation Underwent what appears to be mid LAD intervention with PCI Dual antiplatelet therapy
[2016-10-25 22:53] VITALS: RESP 18
[2016-10-26] MEDS: NITROGLYCERIN OINT 1 INCH/GM PACKET TOPICAL SCH ×2 (01:17→06:04)
[2016-10-26 06:47] LABS: Non-African American GFR(MDRD) >60 (>60 ml/min/1.73 sqM)
--- NOTE | 2016-10-26 07:04 | CC ---
DATE OF SERVICE: 10/25/16 PERFORMING PHYSICIAN: Alexis Constantino M.D., tongue and groove machine setter. PROCEDURE PERFORMED: 1. Selective right and left coronary angiogram. 2. Successful stenting of the proximal LAD using 3.25 x 23 mm Xience DS with good angiographic results. INDICATIONS: This is a pleasant 71 year old gentleman who presented to the hospital with chest discomfort and was ruled out for acute coronary event. He underwent myocardial perfusion imaging stress test and that showed anterior ischemic and subsequently he is scheduled to undergo a heart catheterization to rule out any severe underlying CAD. The procedure in detail was explained to him as well as his family. APPROACH: Right common femoral artery. COMPLICATIONS: None. LEVEL OF SEDATION: Moderate with a sedation length of 28 minutes. PROCEDURE DESCRIPTION: After obtaining informed consent, the patient was brought to the cardiac poultry hatchery laborer. The right common femoral artery was cannulated using micropuncture technique. The micropuncture wire passed easily. Then, I placed a 6 Divehi sheath in the right common femoral artery. Subsequently I did selective right and left coronary angiogram using JR4 and JL4 catheters. After we found out about the lesion in the proximal LAD, we decided to pursue an intervention on the LAD. Please see a separate paragraph for that. SELECTIVE CORONARY ANGIOGRAM: 1. The right coronary artery is a large caliber vessel and it is a dominant vessel. The proximal right coronary artery is angiographically normal. The mid RCA is angiographically normal and gives rise into a small acute marginal branch. The RCA distally is normal and bifurcates into PDA and PLV branches both are angiographically normal. 2. The left main is angiographically normal. It bifurcates into left circumflex, ramus intermedius and left anterior descending artery. 3. The left circumflex is a large caliber vessel and it is a nondominant vessel. It is tortuous but angiographically normal. 4. The ramus intermedius is a moderate caliber vessel and seems to be angiographically normal. 5. The left anterior descending coronary artery: The proximal left anterior descending artery has two tandem lesions appeared to be in the range of 70 to 80 %. The mid LAD appeared to be angiographically normal and gives rise into a diag branch which seems to be angiographically normal and the LAD distally is angiographically normal. PTCA of the LAD : Anticoagulation was initiated using Angiomax. The left main was engaged using JL4 guiding catheter. The LAD was wired using Whisper wire. I did stent using 3.25 x 23 mm Xience CHAD where the stent was positioned under fluoroscopic guidance and deployed under 16 atmospheres for 30 seconds. I dilated the stent using 3.5 mm balloon which was noncompliant balloon which was inflated under 18 atmospheres for 20 seconds. The following angiogram showed good angiographic results with perforation and without dissection. The procedure was completed without any complication. CONCLUSION: 1. Normal right coronary artery disease. 2. Normal left main coronary artery. 3. Normal left circumflex coronary artery. 4. Severe disease involving the proximal LAD. 5. Successful stenting of the proximal LAD using 3.25 x 23 mm Xience CHAD with good angiographic results. POSTPROCEDURE MANAGEMENT: 1. Dual antiplatelet therapy. 2. Risk factor modifications. 3. Follow-up with the patient. PAUL
[2016-10-26] MEDS: LISINOPRIL 5 MG TAB PO SCH (07:46)
[2016-10-26] MEDS: ASPIRIN 325 MG TAB PO SCH (07:46)
[2016-10-26] MEDS ORDERED: PRASUGREL 10 MG TAB PO SCH (09:00)
[2016-10-26] MEDS ORDERED: METOPROLOL TARTRATE 12.5 MG TAB PO SCH (11:00)
--- NOTE | 2016-10-26 11:03 | P.PN ---
Subjective Principal diagnosis: Chest pain This is a pleasant 71-year-old gentleman with no prior documented history of hypertension, no diabetes, no hyperlipidemia, nonsmoker, no family history of premature coronary artery disease. He presented to the hospital with symptoms of midsternal chest tightness. Troponins were negative 3. Patient underwent a Lexiscan stress test which revealed reversible ischemia and patient was recommended to undergo cardiac catheterization. Patient underwent cardiac catheterization with subsequent angioplasty and stenting of the proximal LAD by Dr. Kyle. He was seen and examined this morning, denies any chest pain or difficulty in breathing. EKG shows normal sinus rhythm with no changes from post-PCI. He is hemodynamically stable this morning. Objective - Vital Signs Vital signs: Vital Signs Temp 98.0 F 10/26/16 08:00 Pulse 65 10/26/16 08:00 Resp 18 10/26/16 08:00 BP 129/68 10/26/16 08:00 Pulse Ox 97 10/26/16 08:00 Intake & Output 10/25/16 10/26/16 10/26/16 18:59 06:59 18:59 Intake Total 1352 240 Output Total 500 Balance 852 240 Weight 81.7 kg Intake: IV 130 Intake, IV Titration 400 Amount Sodium Chloride 0.9% 1, 400 000 ml @ 100 mls/hr IV . Q10H TEE Rx#:[id number] Oral 822 240 Output: Urine 500 Other: Voiding Method Toilet Toilet Toilet Urinal Urinal Urinal # Voids 3 1 - Exam PHYSICAL EXAMINATION: HEENT: Head is atraumatic, normocephalic. Pupils equal, round. Neck is supple. There is no elevated jugular venous pressure. HEART EXAMINATION: Heart S1, S2 normal. No murmur or gallop heard. CHEST EXAMINATION: Lungs are clear to auscultation and precussion. No chest wall tenderness is noted on palpation or with deep breathing. ABDOMEN: Soft, nontender. Bowel sounds are heard. No organomegaly noted. Right groin soft, mild ecchymosis, no hematoma. EXTREMITIES: 2+ peripheral pulses with no evidence of peripheral edema and no calf tenderness noted. NEUROLOGIC patient is awake, alert and oriented -3. . - Labs CBC & Chem 7: 10/23/16 20:15 10/26/16 05:21 Assessment and Plan Plan: Assessment and plan #1 symptoms of midsternal chest tightness, troponins negative 2. EKG shows a normal sinus rhythm with nonspecific ST-T wave changes in the anterior leads. Positive stress test, status post LAD stent #2 cardiac risk factors negative for hypertension, no diabetes, no hyperlipidemia, patient is a nonsmoker, no family history of premature coronary artery disease. #3 accelerated hypertension Plan Echocardiogram with Doppler study reveals normal left ventricular systolic function. Patient may be able to be discharged home today. We will make him a follow-up appointment to see Dr. Kyle in the office in one week. Patient will be discharged home on aspirin 325 mg daily, Lipitor 40 mg daily, lisinopril 5 mg daily, Effient 10 mg daily, DNP note has been reviewed, I agree with a documented findings and plan of care. Patient was seen and examined.
[2016-10-26 11:09] VITALS: BP 121/70; PULSE 70; TEMP 97.2
--- NOTE | 2016-10-26 14:09 | P.DS ---
Providers Date of admission: 10/23/16 21:56 Attending physician: Liana Xavier Consults: 10/23/16 21:51 Consult Physician Urgent Consulting Provider: Jose L Sommers Consult Reason/Comments: Unstable angina Do you want consulting provider notified?: Already Contacted 10/25/16 08:58 Consult Physician Routine Consulting Provider: [facility] Consult Reason/Comments: Post Interventional patient Do you want consulting provider notified?: Already Contacted Primary care physician: Jackie Stoner [facility] Course: 71-year-old gentleman with history of essential hypertension comes in to the hospital with complains of intermittent chest pain that has been ongoing for the last 7 days. Patient states that initially he noted a midsternal burning pain that resolved with rest thereafter went on to continuing moving his trailer which included some physical work Patient stated that he noted recurrence of the symptoms with worsening with the exertion and relieved with rest Patient comes in the hospital with concern for heart disease Patient underwent an EKG which the did show some nonspecific ST-T wave changes however nothing meets criteria Patient's cardiac enzymes were not elevated Patient was heparinized and triaged to the floor Patient underwent a stress test. Patient continues to have some chest pain that is atypical at this time 10/25/2016 Patient is seen after the catheterization States that he had another episode with the ambulation with severe burning in his pain This is prior to the episode underwent a cardiac cath via the right groin. Neck is supple no JVD Lungs good air entry clear to auscultation no rhonchi or wheezing Heart S1-S2 heard regular rate and rhythm no murmurs appreciated Abdomen is soft nontender no organomegaly bowel sounds are intact Neurologically cranial nerves II-12 grossly intact no focal motor or sensory deficits noted Skin no abnormalities appreciated Plan: #1 CAD status post LAD stent. #2 essential hypertension #3 BPH #4 history of migraines Vascular checks Dual antiplatelet therapy, statin Patient Condition at Discharge: Stable Plan - Discharge Summary New Discharge Prescriptions: New Aspirin 325 mg PO DAILY #30 tab Atorvastatin [Lipitor] 40 mg PO HS #30 tab Lisinopril [Zestril] 5 mg PO DAILY #30 tab Nitroglycerin Sl Tabs [Nitrostat] 0.4 mg SUBLINGUAL Q5M PRN #25 tab PRN Reason: Chest Pain Prasugrel [Effient] 10 mg PO DAILY #30 tab Metoprolol Tartrate [Lopressor] 12.5 mg PO BID #60 tab Continue ZOLMitriptan [ZOLMitriptan Odt] 5 mg PO BID PRN PRN Reason: Migraine Headache Multivitamin [Men's Multi-Vitamin] 1 tab PO DAILY Alprostadil [Caverject] 10 mcg IC Q48H PRN PRN Reason: E.D. No Action Krill Oil 500 mg PO DAILY Discharge Medication List Alprostadil [Caverject] 10 mcg IC Q48H PRN 10/23/16 [History] Krill Oil 500 mg PO DAILY 10/23/16 [History] Multivitamin [Men's Multi-Vitamin] 1 tab PO DAILY 10/23/16 [History] ZOLMitriptan [ZOLMitriptan Odt] 5 mg PO BID PRN 10/23/16 [History] Aspirin 325 mg PO DAILY #30 tab 10/26/16 [Rx] Atorvastatin [Lipitor] 40 mg PO HS #30 tab 10/26/16 [Rx] Lisinopril [Zestril] 5 mg PO DAILY #30 tab 10/26/16 [Rx] Metoprolol Tartrate [Lopressor] 12.5 mg PO BID #60 tab 10/26/16 [Rx] Nitroglycerin Sl Tabs [Nitrostat] 0.4 mg SUBLINGUAL Q5M PRN #25 tab 10/26/16 [Rx ] Prasugrel [Effient] 10 mg PO DAILY #30 tab 10/26/16 [Rx] Follow up Appointment(s)/Referral(s): Alexis Constantino MD [STAFF PHYSICIAN] - 1 Week (Office will contact patient for APT.) Jackie Maddox III, MD [Primary Care Provider] - 10/28/16 2:00 pm Patient Instructions/Handouts: *Surgery [facility] - After Heart Catheterization - Java User Interface Developer Instructions Discharge Disposition: HOME SELF-CARE
== END 2016-10-26 13:16 | disposition home or self-care (01) | DRG 247 ==
LOC: EC 20:06 → 6SEL 21:56
PROVIDERS: ADMIT Internal Medicine; ATTEND Internal Medicine
PROC: 027034Z Dilation of Coronary Artery, One Artery with Drug-eluting Intraluminal Device, Percutaneous Approach (ICD-10-PCS; principal; 2016-10-25 08:00)
PROC: B2111ZZ Fluoroscopy of Multiple Coronary Arteries using Low Osmolar Contrast (ICD-10-PCS; 2016-10-25 08:00)
DX: I25.110 Atherosclerotic heart disease of native coronary artery with unstable angina pectoris (principal); I10 Essential (primary) hypertension; N40.0 Benign prostatic hyperplasia without lower urinary tract symptoms; G43.909 Migraine, unspecified, not intractable, without status migrainosus; Z79.899 Other long term (current) drug therapy; Z85.46 Personal history of malignant neoplasm of prostate; Z87.891 Personal history of nicotine dependence; Z91.041 Radiographic dye allergy status
CPT/HCPCS: 36415; 71020; 78452; 80053; 80061; 82272; 82550; 82553; 82565; 83735; 84484; 85025; 85610; 85730; 93005; 93017; 93306; 93454; 96361; 96374; 99285

== ENCOUNTER 2016-10-27 19:24 | Inpatient (IN) | payer BC, MEDICARE ==
[2016-10-27] MEDS ORDERED: ASPIRIN 81 MG CHEW PO STA (19:44)
--- NOTE | 2016-10-27 19:57 | ED ---
Chest Pain HPI - General Chief Complaint: Chest Pain Stated Complaint: Chest Pain/SOB Time Seen by Provider: 10/27/16 19:38 Source: patient Mode of arrival: ambulatory Limitations: no limitations - History of Present Illness Initial Comments: This patient is a 71-year-old man who states that he had a stent placed 2 days ago. He developed chest pain tonight about an hour before he got here, while he was sitting on the couch. Patient indicates left side of the chest with radiation to left arm. He did take 2 nitroglycerin tablets which relieved the pain. He was instructed to come to the hospital if he had pain relieved by nitroglycerin. Patient's states that he has also been having some episodes of shortness of breath occurring over the course of the past night. He denies any other associated symptoms. He did not note any other worsening or relieving factors. MD Complaint: chest pain Onset/Timin -: hour(s) Onset: during rest Pain Location: left chest Pain Radiation: LUE Severity: moderate Quality: tightness Consistency: constant, now resolved Improves With: nitroglycerin Worsens With: nothing Treatments Prior to Arrival: nitroglycerin - Related Data Home Medications Medication Instructions Recorded Confirmed Alprostadil [Caverject] 10 mcg IC Q48H PRN 10/23/16 10/27/16 Krill Oil 500 mg PO DAILY 10/23/16 10/27/16 Multivitamin [Men's Multi-Vitamin] 1 tab PO DAILY 10/23/16 10/27/16 ZOLMitriptan [ZOLMitriptan Odt] 5 mg PO BID PRN 10/23/16 10/27/16 Previous Rx's Medication Instructions Recorded Aspirin 325 mg PO DAILY #30 tab 10/26/16 Atorvastatin [Lipitor] 40 mg PO HS #30 tab 10/26/16 Lisinopril [Zestril] 5 mg PO DAILY #30 tab 10/26/16 Metoprolol Tartrate [Lopressor] 12.5 mg PO BID #60 tab 10/26/16 Nitroglycerin Sl Tabs [Nitrostat] 0.4 mg SUBLINGUAL Q5M PRN #25 tab 10/26/16 Prasugrel [Effient] 10 mg PO DAILY #30 tab 10/26/16 Allergies Allergy/AdvReac Type Severity Reaction Status Date / Time iodine Allergy Unknown Verified 10/27/16 20:21 Iodinated Contrast- Oral and AdvReac Unknown Verified 10/27/16 20:21 IV Dye [Iodinated Contrast Media - IV Dye] Review of Systems ROS Statement: Those systems with pertinent positive or pertinent negative responses have been documented in the HPI. ROS Other: All systems not noted in ROS Statement are negative. Constitutional: Denies: fever, chills Respiratory: Reports: dyspnea (Has had intermittent episodes of dyspnea over the past night. None accompanying this episode of pain.). Denies: cough, wheezes, hemoptysis Cardiovascular: Reports: as per HPI, chest pain. Denies: palpitations, edema, syncope Gastrointestinal: Denies: abdominal pain, nausea, vomiting, melena, hematochezia Genitourinary: Denies: dysuria, hematuria Musculoskeletal: Denies: back pain Skin: Denies: rash Neurological: Denies: headache, weakness, numbness EKG Findings - EKG Results: EKG: interpreted by ERMD, sinus rhythm (Rate 69 bpm), normal axis, normal ST/T - Blocks, [place], Hypertrophy, ST Abn: Chamber hypertrophy or enlargement: only voltage criteria for left ventricular hypertrophy Past Medical History Past Medical History: Chest Pain / Angina, Myocardial Infarction ([place]), Prostate Disorder Additional Past Medical History / Comment(s): prostate cancer History of Any Multi-Drug Resistant Organisms: None Reported Past Surgical History: Heart Catheterization With Stent Past Psychological History: No Psychological Hx Reported Smoking Status: Former smoker Past Alcohol Use History: None Reported Past Drug Use History: None Reported - Past Family History Father Additional Family Medical History / Comment(s): dad living alone at , pacemaker Mother Family Medical History: Dementia General Exam Limitations: no limitations General appearance: alert, in no apparent distress Head exam: Present: atraumatic, normocephalic Eye exam: Present: normal appearance. Absent: scleral icterus, conjunctival injection ENT exam: Present: normal oropharynx Neck exam: Present: normal inspection Respiratory exam: Present: normal lung sounds bilaterally. Absent: respiratory distress, wheezes, rales, rhonchi, stridor, chest wall tenderness Cardiovascular Exam: Present: regular rate, normal rhythm, normal heart sounds. Absent: systolic murmur, diastolic murmur, rubs, gallop GI/Abdominal exam: Present: soft. Absent: tenderness, guarding, rebound, mass Extremities exam: Present: normal inspection, normal capillary refill. Absent: pedal edema, calf tenderness Back exam: Present: normal inspection. Absent: CVA tenderness (R), CVA tenderness (L) Neurological exam: Present: alert Skin exam: Present: warm, dry, intact, normal color. Absent: rash Course Vital Signs 10/27/16 10/27/16 10/27/16 19:28 20:18 21:28 Temperature 98.4 F Pulse Rate 68 68 69 Respiratory 18 20 20 Rate Blood Pressure 144/78 141/79 147/70 O2 Sat by Pulse 96 96 97 Oximetry 10/27/16 22:28 Temperature 98 F Pulse Rate 69 Respiratory 20 Rate Blood Pressure 141/69 O2 Sat by Pulse 98 Oximetry - Reevaluation(s) Reevaluation #1: 10/27/16 22:10 Case discussed with admitting physician and with fish net stringer and patient be admitted for telemetry monitoring and serial cardiac enzymes. Critical Care Time Critical Care Time: Yes (35 minutes) Disposition Clinical Impression: Chest pain, Elevated troponin I level Disposition: ADMITTED IP TO THIS HOSP Condition: Fair
[2016-10-27 20:07] LABS: Basophils % (A) 0 %; CHCM 34.8; Eosinophils # (A) 0.1 k/uL (0-0.7); Eosinophils % (A) 1 %; HCT 41.6 % (39.0-53.0); HDW 2.81; HGB 14.6 gm/dL (13.0-17.5); Luc # (Auto) 0.09; Luc % (Auto) 2; Lymphocytes # (A) 1.7 k/uL (1.0-4.8); Lymphocytes % (A) 31 %; MCH 31.4 pg (25.0-35.0); MCHC 35.2 g/dL (31.0-37.0); MCV 89.4 fL (80.0-100.0); Mean Platelet Volume 7.4; Monocytes # (A) 0.4 k/uL (0-1.0); Monocytes % (A) 7 %; Neutrophils # (A) 3.2 k/uL (1.3-7.7); Neutrophils % (A) 59 %; RBC 4.65 m/uL (4.30-5.90); RDW 13.6 % (11.5-15.5); WBC 5.5 k/uL (3.8-10.6); WBC (Perox) 5.47
[2016-10-27 20:19] LABS: INR 1.1 (<1.2); Partial Thromboplastin Time 24.5 sec (22.0-30.0); Prothrombin Time 11.2 sec (9.0-12.0)
--- NOTE | 2016-10-27 20:23 | XR ---
EXAMINATION TYPE: XR chest 1V portable DATE OF EXAM: 10/27/2016 COMPARISON: 10/23/2016 HISTORY: Pain TECHNIQUE: Single frontal view of the chest is obtained. FINDINGS: There is no focal air space opacity, pleural effusion, or pneumothorax seen. The cardiac silhouette size is within normal limits. The osseous structures are intact. IMPRESSION: No acute process.
[2016-10-27 20:24] LABS: ALT 52 U/L (21-72); AST 42 U/L (17-59); Alkaline Phosphatase 48 U/L (38-126); Anion Gap 11 mmol/L; Blood Urea Nitrogen 23 mg/dL (9-20); Carbon Dioxide 25 mmol/L (22-30); Chloride 109 mmol/L (98-107); Glucose 104 mg/dL (74-99); Magnesium 2.3 mg/dL (1.6-2.3); Non-African American GFR(MDRD) >60 (>60 ml/min/1.73 sqM); Potassium 3.4 mmol/L (3.5-5.1); Sodium 145 mmol/L (137-145); Total Bilirubin 0.6 mg/dL (0.2-1.3); Total Protein 6.1 g/dL (6.3-8.2)
[2016-10-27 20:39] LABS: Creatine Kinase MB 1.5 ng/mL (0.0-2.4)
[2016-10-27 20:42] LABS: Troponin I 0.561 ng/mL (0.000-0.034)
[2016-10-27] MEDS ORDERED: HEPARIN SODIUM,PORCINE 5,000 UNIT/ML 1 ML VIAL IV ONE (21:26)
[2016-10-27] MEDS ORDERED: HEPARIN SODIUM,PORCINE/D5W PMX 25,000 UNIT in DEXTROSE/WATER 1 500ML.BAG IV SCH (21:30)
[2016-10-27] MEDS ORDERED: NITROGLYCERIN SL TABS 0.4 MG TAB SUBLINGUAL PRN (22:04)
[2016-10-27] MEDS ORDERED: SUMAtriptan SUCCINATE 50 MG TAB PO PRN (22:09)
[2016-10-27] MEDS: SODIUM CHLORIDE 0.9% 1,000 ML IV SCH (22:23)
[2016-10-28 01:42] VITALS: BMI 25.6
[2016-10-28 02:18] LABS: Creatine Kinase MB 1.2 ng/mL (0.0-2.4)
[2016-10-28 02:19] LABS: Troponin I 0.668 ng/mL (0.000-0.034)
--- NOTE | 2016-10-28 08:15 | P.CRDCN ---
History of Present Illness Consult date: 10/28/16 Requesting physician: Liana Xavier Consult reason: chest pain Chief complaint: Chest Pain History of present illness: This is a pleasant 71-year-old gentleman with no prior documented history of hypertension, no diabetes, no hyperlipidemia, nonsmoker, who recently presented to the hospital on October 24 with symptoms of chest discomfort. He underwent a stress test which came back to be positive and subsequently was taken to the custodial laborer where he underwent angioplasty with stenting of the LAD. He was discharged home 2 days ago, felt well overall. Yesterday he states that he had just finished eating, washed his dishes and walked back to sit down when he developed midsternal chest pressure and heaviness similar to that which she experienced on his initial presentation here. He did take one sublingual nitroglycerin with minimal relief, took a second sublingual nitroglycerin with relief of symptoms. He states then that he drove home, and his brought him here to the emergency room for further evaluation. Patient had been taking his medications as prescribed. Initial EKG on presentation here showed a normal sinus rhythm with minimal ST-T wave changes in leads V1 and V2, 1 and aVL, subsequent EKG performed this morning showed a sinus bradycardia with a minimum ST-T wave changes in the anterior lateral leads. Chest x-ray not reveal any significant change. Sodium 145, potassium 3.4, BUN 23, creatinine 0.9. Magnesium 2.3. Troponin's 0.56, 0.668. Blood pressure 144/70 with a heart rate in the 60s, 96% on room air. Time of my examination this morning patient is currently chest pain-free. He is on IV heparin. Past Medical History Past Medical History: Chest Pain / Angina, Myocardial Infarction ([place]), Prostate Disorder Additional Past Medical History / Comment(s): prostate cancer Last Myocardial Infarction Date:: 10-23-16 History of Any Multi-Drug Resistant Organisms: None Reported Past Surgical History: Heart Catheterization With Stent Additional Past Surgical History / Comment(s): stent proximal LAD Date of Last Stent Placement:: 10-25-2016 Past Psychological History: No Psychological Hx Reported Smoking Status: Former smoker Past Alcohol Use History: None Reported Past Drug Use History: None Reported - Past Family History Father Additional Family Medical History / Comment(s): dad living alone at 94, pacemaker Mother Family Medical History: Dementia Medications and Allergies Home Medications Medication Instructions Recorded Confirmed Type Alprostadil [Caverject] 10 mcg IC Q48H PRN 10/23/16 10/27/16 History Krill Oil 500 mg PO DAILY 10/23/16 10/27/16 History Multivitamin [Men's Multi-Vitamin] 1 tab PO DAILY 10/23/16 10/27/16 History ZOLMitriptan [ZOLMitriptan Odt] 5 mg PO BID PRN 10/23/16 10/27/16 History Allergies Allergy/AdvReac Type Severity Reaction Status Date / Time iodine Allergy Unknown Verified 10/27/16 20:21 Iodinated Contrast- Oral and AdvReac Unknown Verified 10/27/16 20:21 IV Dye [Iodinated Contrast Media - IV Dye] Physical Exam Vitals: Vital Signs Temp Pulse Pulse Resp BP BP Pulse Ox 10/28/16 04:00 97.1 F L 59 L 15 138/87 95 10/28/16 00:00 97.6 F 64 16 137/80 97 10/27/16 22:28 98 F 69 20 141/69 98 10/27/16 21:28 69 20 147/70 97 10/27/16 20:18 68 20 141/79 96 10/27/16 19:28 98.4 F 68 18 144/78 96 Intake and Output 10/27/16 10/28/16 10/28/16 22:59 06:59 14:59 Intake Total 39.59 393.463 Balance 39.59 393.463 Intake: IV 19.59 160 Heparin Sodium,Porcine/ 19.59 160 D5w Pmx 25,000 unit In Dextrose/Water 1 500ml. bag @ 12 UNITS/KG/HR 19. 59 mls/hr IV .Q24H TEE Rx #:[id number] Intake, IV Titration 20 233.463 Amount Heparin Sodium,Porcine/ 73.463 D5w Pmx 25,000 unit In Dextrose/Water 1 500ml. bag @ 12 UNITS/KG/HR 19. 59 mls/hr IV .Q24H TEE Rx #:[id number] Sodium Chloride 0.9% 1, 20 160 000 ml @ 20 mls/hr IV . Q24H TEE Rx#:[id number] Other: Voiding Method Toilet Weight 81.1 kg 81.1 kg PHYSICAL EXAMINATION: HEENT: Head is atraumatic, normocephalic. Pupils equal, round. Neck is supple. There is no elevated jugular venous pressure. HEART EXAMINATION: Heart S1, S2 normal. No murmur or gallop heard. CHEST EXAMINATION: Lungs are clear to auscultation and precussion. No chest wall tenderness is noted on palpation or with deep breathing. ABDOMEN: Soft, nontender. Bowel sounds are heard. No organomegaly noted. EXTREMITIES: 2+ peripheral pulses with no evidence of peripheral edema and no calf tenderness noted. NEUROLOGIC patient is awake, alert and oriented -3. . Results 10/27/16 19:35 10/27/16 19:35 Cardiac Enzymes 10/27/16 10/27/16 10/28/16 Range/Units 19:35 19:35 01:28 AST 42 (17-59) U/L CK-MB (CK-2) 1.5 1.2 (0.0-2.4) ng/mL Troponin I 0.561 H* 0.668 H* (0.000-0.034) ng/mL Coagulation 10/27/16 10/28/16 Range/Units 19:35 01:28 PT 11.2 (9.0-12.0) sec APTT 24.5 59.7 H (22.0-30.0) sec CBC 10/27/16 Range/Units 19:35 WBC 5.5 (3.8-10.6) k/uL RBC 4.65 (4.30-5.90) m/uL Hgb 14.6 (13.0-17.5) gm/dL Hct 41.6 (39.0-53.0) % Plt Count 137 L (150-450) k/uL Comprehensive Metabolic Panel 10/27/16 Range/Units 19:35 Sodium 145 (137-145) mmol/L Potassium 3.4 L (3.5-5.1) mmol/L Chloride 109 H (98-107) mmol/L Carbon Dioxide 25 (22-30) mmol/L BUN 23 H (9-20) mg/dL Creatinine 0.90 (0.66-1.25) mg/dL Glucose 104 H (74-99) mg/dL Calcium 9.0 (8.4-10.2) mg/dL AST 42 (17-59) U/L ALT 52 (21-72) U/L Alkaline Phosphatase 48 (38-126) U/L Total Protein 6.1 L (6.3-8.2) g/dL Albumin 3.8 (3.5-5.0) g/dL Current Medications Generic Name Dose Route Start Last Admin Trade Name Freq PRN Reason Stop Dose Admin Aspirin 325 mg 10/28/16 09:00 Aspirin PO DAILY [facility] Atorvastatin Calcium 40 mg 10/28/16 21:00 Lipitor PO HS [facility] Heparin Sodium/Dextrose 25,000 500 mls @ 19.59 mls/hr 10/27/16 21:30 02:08 unit/ IV Solution IV 12 units/kg/hr .Q24H TEE 19.59 mls/hr Protocol Titration 12 UNITS/KG/HR Sodium Chloride 1,000 mls @ 20 mls/hr 10/27/16 22:15 10/27/16 22:23 Saline 0.9% IV 20 mls/hr .Q24H [facility] Administration Lisinopril 5 mg 10/28/16 09:00 Zestril PO DAILY [facility] Metoprolol Tartrate 12.5 mg 10/28/16 09:00 Lopressor PO BID [facility] Multivitamins 1 each 10/28/16 12:00 Theragran PO DAILY@1200 [facility] Nitroglycerin 0.4 mg 10/27/16 22:04 Nitrostat SUBLINGUAL Q5M PRN Chest Pain Prasugrel 10 mg 10/28/16 09:00 Effient PO DAILY [facility] Sumatriptan Succinate 50 mg 10/27/16 22:09 Imitrex PO BID PRN Migraine Headache Intake and Output 10/27/16 10/28/16 10/28/16 22:59 06:59 14:59 Intake Total 39.59 393.463 Balance 39.59 393.463 Intake: IV 19.59 160 Heparin Sodium,Porcine/ 19.59 160 D5w Pmx 25,000 unit In Dextrose/Water 1 500ml. bag @ 12 UNITS/KG/HR 19. 59 mls/hr IV .Q24H [facility] Rx #:[id number] Intake, IV Titration 20 233.463 Amount Heparin Sodium,Porcine/ 73.463 D5w Pmx 25,000 unit In Dextrose/Water 1 500ml. bag @ 12 UNITS/KG/HR 19. 59 mls/hr IV .Q24H TEE Rx #:[id number] Sodium Chloride 0.9% 1, 20 160 000 ml @ 20 mls/hr IV . Q24H TEE Rx#:[id number] Other: Voiding Method Toilet Weight 81.1 kg 81.1 kg 10/27/16 19:35 10/27/16 19:35 EKG Interpretations (text) EKG shows normal sinus rhythm with nonspecific ST-T wave changes in the anterior lateral leads. Assessment and Plan Plan: Assessment and plan #1 non-ST elevation myocardial infarction #2 recent LAD stenting #3 hypertension Plan We will obtain a repeat echocardiogram with Doppler study. Echo performed last week revealed an ejection fraction of 55-60%. We will continue IV heparin along with aspirin, Lipitor, lisinopril, metoprolol tartrate, and Effient. Patient was advised that he may need to undergo repeat cardiac catheterization to reassess the recent stented area in the LAD. Further recommendations to follow. DNP note has been reviewed, I agree with a documented findings and plan of care. Patient was seen and examined.
[2016-10-28] MEDS ORDERED: SODIUM CHLORIDE 0.9% 1,000 ML in EMPTY BAG 1 BAG IV ONE (08:32)
[2016-10-28] MEDS ORDERED: ALPRAZolam 0.25 MG TAB PO PRN (08:32)
[2016-10-28] MEDS ORDERED: NITROGLYCERIN SL TABS 0.4 MG TAB SUBLINGUAL PRN (08:32)
[2016-10-28] MEDS ORDERED: ALPRAZolam 0.5 MG TAB PO PRN (08:32)
[2016-10-28] MEDS ORDERED: ASPIRIN 325 MG TAB PO STA (08:32)
[2016-10-28] MEDS ORDERED: ATORVASTATIN 80 MG TAB PO STA (08:32)
[2016-10-28 08:42] LABS: Troponin I 0.517 ng/mL (0.000-0.034)
[2016-10-28 08:45] LABS: Cholesterol 138 mg/dL (<200); HDL Cholesterol 33 mg/dL (40-60)
[2016-10-28] MEDS ORDERED: methylPREDNISolone SOD SUCCI 125 MG/2 ML VIAL IV STA ×2 (08:55→19:04)
[2016-10-28] MEDS: LISINOPRIL 5 MG TAB PO SCH (09:00)
[2016-10-28] MEDS: METOPROLOL TARTRATE 12.5 MG TAB PO SCH ×2 (09:00→20:57)
[2016-10-28] MEDS ORDERED: ASPIRIN 325 MG TAB PO SCH (09:00)
[2016-10-28] MEDS: PRASUGREL 10 MG TAB PO SCH (09:00)
[2016-10-28] MEDS ORDERED: Potassium Replacement Protocol 1 EACH MISC MISCELLANE PRN (10:20)
[2016-10-28] MEDS ORDERED: LIDOCAINE 2% INJ 20 MG/ML (20 ML MDV) ONE (10:45)
[2016-10-28] MEDS ORDERED: SODIUM CHLORIDE 0.9% 1,000 ML IV ONE (10:57)
[2016-10-28] MEDS ORDERED: diphenhydrAMINE 50 MG/ML 1 ML VIAL ONE (11:04)
[2016-10-28] MEDS ORDERED: MIDAZOLAM 2 MG/2 ML VIAL ONE (11:04)
[2016-10-28] MEDS ORDERED: diphenhydrAMINE 50 MG/ML 1 ML VIAL IVP ONE (11:10)
[2016-10-28] MEDS ORDERED: MIDAZOLAM 2 MG/2 ML VIAL IV ONE (11:19)
[2016-10-28] MEDS ORDERED: LIDOCAINE 2% INJ 20 MG/ML SQ ONE (11:23)
[2016-10-28] MEDS ORDERED: hydrALAZINE HCL 20 MG/ML 1 ML VIAL ONE (11:26)
[2016-10-28] MEDS ORDERED: ENALAPRILAT 1.25 MG/ML 1 ML VIAL ONE (11:26)
[2016-10-28] MEDS ORDERED: hydrALAZINE HCL 20 MG/ML 1 ML VIAL IV ONE (11:29)
[2016-10-28] MEDS ORDERED: ENALAPRILAT 1.25 MG/ML 1 ML VIAL IV ONE (11:31)
[2016-10-28] MEDS ORDERED: IOHEXOL 350 MG/ML 125ML BOTTLE INJ ONE (11:37)
[2016-10-28] MEDS ORDERED: RX INFO: IV CONTRAST WAS GIVEN 1 EACH MISC MISCELLANE PRN ×2 (11:39→19:01)
[2016-10-28] MEDS ORDERED: SODIUM CHLORIDE 0.9% 1,000 ML IV SCH (11:45)
[2016-10-28] MEDS: POTASSIUM CHLORIDE ER 20 MEQ TAB.ER PO SCH (15:29)
[2016-10-28] MEDS: MULTIVITAMINS, THERA 1 EACH TAB PO SCH (15:29)
--- NOTE | 2016-10-28 18:58 | ECHOF ---
Referral Reason:assess lvf MEASUREMENTS -------- HEIGHT: 182.9 cm WEIGHT: 80.7 kg BP: 138/87 IVSd: 1.3 cm (0.6 - 1.1) LVIDd: 3.4 cm (3.9 - 5.3) LVPWd: 1.3 cm (0.6 - 1.1) IVSs: 1.5 cm LVIDs: 2.4 cm LVPWs: 1.6 cm Ao Diam: 4.0 cm (2.0 - 3.7) AV Cusp: 2.4 cm (1.5 - 2.6) LA Diam: 2.8 cm (2.7 - 3.8) MV EXCURSION: 20.477 mm (> 18.000) MV EF SLOPE: 84 mm/s (70 - 150) EPSS: 1.0 cm MV E Prakash: 0.51 m/s MV DecT: 183 ms MV A Prakash: 0.49 m/s MV E/A Ratio: 1.03 AR PHT: 239 ms RAP: 5.00 mmHg RVSP: 32.27 mmHg FINDINGS -------- Sinus rhythm. This was a technically good study. There is mild concentric left ventricular hypertrophy. Overall left ventricular systolic function is normal with, an EF between 55 - 60 %. The right ventricle is normal in size and function. The left atrium is normal in size. The right atrium is normal in size. The aortic valve is trileaflet and appears structurally normal. Mild mitral regurgitation is present. Trace tricuspid regurgitation present. The right ventricular systolic pressure, as measured by Doppler, is 32.27mmHg. Pulmonic valve appears structurally normal. The aortic root is mildy dilated. Ascending Aortic Anuerysm measuring 4.0 cm The pericardium is normal. CONCLUSIONS -------- 1. Sinus rhythm. 2. Trace tricuspid regurgitation present. 3. The right ventricular systolic pressure, as measured by Doppler, is 32.27mmHg. 4. Pulmonic valve appears structurally normal. 5. The aortic root is mildy dilated. 6. Ascending Aortic Anuerysm measuring 4.0cm 7. The pericardium is normal. 8. This was a technically good study. 9. There is mild concentric left ventricular hypertrophy. 10. Overall left ventricular systolic function is normal with, an EF between 55 - 60 %. 11. The right ventricle is normal in size and function. 12. The left atrium is normal in size. 13. The right atrium is normal in size. 14. The aortic valve is trileaflet and appears structurally normal. 15. Mild mitral regurgitation is present. PARTS CONTROL CLERK: Maria M Soto RDCS
[2016-10-28] MEDS ORDERED: FAMOTIDINE 20 MG/2 ML VIAL IV STA (19:06)
[2016-10-28] MEDS ORDERED: diphenhydrAMINE 50 MG/ML 1 ML VIAL IVP STA (19:06)
[2016-10-28] MEDS ORDERED: ATORVASTATIN 40 MG TAB PO SCH (21:00)
[2016-10-28] MEDS: SODIUM CHLORIDE 0.9% 1,000 ML IV SCH (21:05)
[2016-10-28 21:56] VITALS: RESP 17
[2016-10-28] MEDS ORDERED: LACTULOSE 20 GM/30 ML CUP PO PRN (23:39)
[2016-10-29 04:23] VITALS: TEMP 97
[2016-10-29 06:19] LABS: Basophils % (A) 0 %; CH 31.4; CHCM 34.7; Eosinophils % (A) 1 %; HDW 2.78; HGB 14.7 gm/dL (13.0-17.5); Luc # (Auto) 0.08; Luc % (Auto) 1; Lymphocytes % (A) 13 %; MCH 31.1 pg (25.0-35.0); MCHC 34.2 g/dL (31.0-37.0); MCV 90.9 fL (80.0-100.0); Mean Platelet Volume 7.3; Monocytes # (A) 0.5 k/uL (0-1.0); Monocytes % (A) 6 %; Neutrophils # (A) 6.4 k/uL (1.3-7.7); Neutrophils % (A) 80 %; RBC 4.73 m/uL (4.30-5.90); RDW 13.4 % (11.5-15.5); WBC 8.1 k/uL (3.8-10.6); WBC (Perox) 8.38
[2016-10-29 06:28] LABS: Anion Gap 10 mmol/L; Blood Urea Nitrogen 17 mg/dL (9-20); Carbon Dioxide 22 mmol/L (22-30); Chloride 111 mmol/L (98-107); Glucose 96 mg/dL (74-99); Non-African American GFR(MDRD) >60 (>60 ml/min/1.73 sqM); Potassium 3.8 mmol/L (3.5-5.1); Sodium 143 mmol/L (137-145)
[2016-10-29] MEDS: SODIUM CHLORIDE 0.9% 1,000 ML IV SCH ×2 (06:49→10:08)
[2016-10-29 08:31] VITALS: BP 154/84; PULSE 72
[2016-10-29] MEDS: METOPROLOL TARTRATE 12.5 MG TAB PO SCH (10:06)
[2016-10-29] MEDS: PRASUGREL 10 MG TAB PO SCH (10:06)
[2016-10-29] MEDS: MULTIVITAMINS, THERA 1 EACH TAB PO SCH (10:07)
[2016-10-29] MEDS: LISINOPRIL 5 MG TAB PO SCH (10:07)
--- NOTE | 2016-10-29 10:59 | P.PN ---
Subjective Principal diagnosis: CAD and status post LAD stenting This is a pleasant 71-year-old gentleman who presented to the hospital with chest discomfort. He underwent stenting of the LAD a few days ago in the setting of unstable angina. This time, the troponin came in to be slightly abnormal. He underwent a heart catheterization which showed patent stent in the proximal LAD. The d-dimer was checked and came in to be slightly abnormal. Clinically the patient continues to be pain-free Objective - Vital Signs Vital signs: Vital Signs Temp 97.0 F L 10/29/16 04:00 Pulse 72 10/29/16 08:00 Resp 17 10/29/16 08:00 BP 154/84 10/29/16 08:00 Pulse Ox 98 10/29/16 08:47 Intake & Output 10/28/16 10/29/16 10/29/16 18:59 06:59 18:59 Intake Total 1302 75 240 Output Total 1000 Balance 302 75 240 Weight 80.4 kg Intake: IV 900 0 Heparin Sodium,Porcine/ 0 D5w Pmx 25,000 unit In Dextrose/Water 1 500ml. bag @ 12 UNITS/KG/HR 19. 59 mls/hr IV .Q24H TEE Rx #:[id number] Sodium Chloride 0.9% 1, 800 000 ml @ 100 mls/hr IV . Q10H TEE Rx#:[id number] Intake, IV Titration 75 Amount Sodium Chloride 0.9% 1, 75 000 ml @ 75 mls/hr IV . [id number] TEE Rx#:[id number] Oral 402 240 Output: Urine 1000 Other: Voiding Method Toilet Toilet # Voids 1 - Constitutional General appearance: Present: no acute distress - Respiratory Respiratory: bilateral: CTA - Cardiovascular Rhythm: regular Heart sounds: normal: S1, S2 - Labs CBC & Chem 7: 10/29/16 05:52 10/29/16 05:52 Labs: Abnormal Lab Results - Last 24 Hours (Table) 10/28/16 10/29/16 10/29/16 Range/Units 17:51 05:52 05:52 Plt Count 146 L (150-450) k/uL D-Dimer 0.60 H (<0.60) mg/L FEU Chloride 111 H (98-107) mmol/L Assessment and Plan Plan: I will continue the patient on the current medical treatment which included dual antiplatelet therapy, statin, beta leah. The patient initially was scheduled to undergo a CTA but that was canceled because the patient received contrast the day before with a heart catheterization. I will schedule the patient to undergo VQ scan and will follow -up with him. If the VQ scan came in to be unremarkable the patient can be discharged home.
--- NOTE | 2016-10-29 11:56 | HP ---
DATE OF SERVICE: 10/28/2016 CHIEF COMPLAINTS: Chest pain. HISTORY OF PRESENT ILLNESS: This 71-year-old gentleman with past medical history of multiple medical problems including myocardial infarction, history of prostate disorder, recently had a CAD with stent. Patient is followed by Dr. Maddox in the outpatient setting. Currently the patient is complaining of abdominal pain, shortness of breath and the pain was also radiating to the left arm. The patient took two nitro tablets and pain relieved and patient came to [facility] and admitted for further evaluation and treatment. The admission evaluation showed troponin 0.561 and follow up 0.668 indicating possible acute non-ST elevation myocardial infarction. The patient underwent cardiac catheterization, which showed no significant disease at this time. The full report is pending at this time. The patient is closely monitored. Of note , the admission pulse ox was 96% on room air and the patient also had chest x- ray on admission, which showed no acute process. The patient also had some hematuria also. PAST MEDICAL HISTORY: History of recent CAD and stenting, history of myocardial infarction, history of prostate disorder. Medications are: 1. Sumatriptan 5 mg p.o b.i.d. 2. Effient 10 mg p.o b.i.d. 3. Nitrostat 0.4 sublingual p.r.n. 4. Multivitamins. 5. Lopressor 12.5 mg b.i.d. 6. Zestril 5 mg p.o. daily. 7. Quill oil 500 mg p.o. daily. 8. Lipitor 40 mg q.h.s. 9. Aspirin 325 mg daily. 10. Caverject 10 mcg q.48h p.r.n ALLERGIES: IODINE AND IODINATED CONTRAST. FAMILY HISTORY: History of dementia. SOCIAL HISTORY: Previous history of smoking. No current history of smoking or alcohol intake. REVIEW OF SYSTEMS: ENT: No diminished hearing or vision. CARDIOVASCULAR: As mentioned earlier. RESPIRATORY: As mentioned earlier. GI: No nausea. : No dysuria. NERVOUS SYSTEM: No numbness or weakness. ALLERGY/IMMUNOLOGY: No asthma or hayfever. MUSCULOSKELETAL: As mentioned earlier. HEMATOLOGY/ONCOLOGY: No history of anemia. ENDOCRINE: No history of diabetes or hypothyroidism. CONSTITUTIONAL: As mentioned earlier. DERMATOLOGY: Negative. RHEUMATOLOGY: Negative. PSYCHIATRY: As mentioned earlier. PHYSICAL EXAMINATION: The patient is alert and oriented x3. Pulse is 68, blood pressure 141/79, respirations 20, temperature 98.4, pulse ox 96% on room air. HEENT: Conjunctivae normal. NECK: No jugular venous distention. CARDIOVASCULAR: S1, S2. RESPIRATORY: Breath sounds diminished at the bases. No rhonchi, no crackles. ABDOMEN: Soft, nontender, no mass palpable. LEGS: No edema, no swelling. NERVOUS SYSTEM: Higher function as mentioned. Moves all four limbs. No focal motor sensory deficits. LYMPHATICS: No lymphadenopathy in the neck, axillae or groin. SKIN: No rash, ulcer or bleeding. LABS: CBC within normal limits. Sodium 137, potassium 3.4. ASSESSMENT: 1. Chest pain, possible acute non-ST segment elevation myocardial infarction, possible coronary vasospasm with troponin 0.517 status post cardiac catheterization. 2. History of recent coronary artery disease and left anterior descending stenting. 3. Hypokalemia. 4. Mild thrombocytopenia. 5. Remote history of nicotine dependence. 6. History of benign prostatic hypertrophy. 7. History of hematuria. 8. FULL CODE. RECOMMENDATIONS AND DISCUSSION: In this 71-year-old gentleman who presented with multiple complex medical issues, we well monitor the patient closely. Continue the current medications, continue symptomatic treatment. Otherwise we will continue the beta-blockers. Continue the OSWALDO inhibitors. Continue antiplatelet agents. I recommend to repeat labs. Will also recommend a d-dimer and if d-dimer is positive I would also recommend to rule out the possibility of pulmonary embolism. Otherwise we will continue to monitor. Discussed with patient. Continue the rest of the medications. Discussed with family. Prognosis guarded. Further recommendations to follow. Copy of dictation forwarded to Dr. Maddox who is the primary physician. [facility] HOSPITALHermelindo
--- NOTE | 2016-10-29 12:25 | CC ---
DATE OF SERVICE: 10/28/2016 PERFORMING PHYSICIAN: Alexis Constantino M.D., certified surgical assistant PROCEDURE PERFORMED: Selective right and left coronary angiogram. INDICATION: This is a pleasant 71-year-old gentleman who presented to the hospital 2 days ago with acute [id number] myocardial infarction. He underwent heart catheterization and was found to have severe disease involving the proximal LAD, which was stented at that point with good angiographic results and without any complications. He presented back to the hospital with an episode of chest discomfort with mild abnormal enzymes and mild EKG changes. APPROACH: Left common femoral artery. COMPLICATIONS: None. LEVEL OF SEDATION: Moderate, with a sedation length of 19 minutes. PROCEDURE DESCRIPTION: After obtaining informed consent, the patient was brought to the cardiac slab installer. The left common femoral artery was cannulated using micropuncture technique. Then I placed a 6 Turkmen sheath. Subsequently I did selective right and left coronary angiogram using JR4 and JL4 catheters. The procedure was completed without any complications. SELECTIVE CORONARY ANGIOGRAM: 1. The right coronary artery is a large-caliber vessel. It is a dominant vessel. The RCA has mild disease in the proximal portion, but the mid portion and distal portion are normal. It bifurcates into PDA and PLV branches; both are normal. 2. The left main is angiographically normal. It bifurcates into the left circumflex and left anterior descending artery as well as ramus intermedius. 3. The left circumflex is a large-caliber vessel. It is a non-dominant vessel. It is angiographically normal. 4. The left ramus intermedius is a moderate-caliber vessel. It seems to be angiographically normal. 5. LAD. The proximal LAD is stented. The stent is patent. The mid LAD is angiographically normal. It gives rise to a large-sized diagonal branch, which seems to be angiographically normal. The LAD distally is angiographically normal. CONCLUSION: Patent stent in the proximal LAD. POST-PROCEDURE MANAGEMENT: 1. Maximize medical treatment. 2. Follow up with the patient. PAUL
--- NOTE | 2016-10-29 13:10 | NM ---
EXAMINATION TYPE: NM pul vent and perfuse DATE OF EXAM: 10/29/2016 COMPARISON: Correlation radiographs 10/27/2016 HISTORY: 71-year-old male elevated d-dimer, contrast allergy, rule out PE. TECHNIQUE: Utilizing inhalation of 71.2 mCi Tc 99m DTPA aerosol and intravenous injection of 5.4 mCi of Tc 99m MAA, ventilation and perfusion images are acquired post injection in multiple projections. FINDINGS: There is relatively homogeneous distribution of tracer noted in the lungs. No mismatched perfusion de fect. IMPRESSION: Very low probability for pulmonary embolus.
--- NOTE | 2016-11-01 13:18 | DS ---
DATE OF SERVICE: 10/29/2016 FINAL DIAGNOSES: 1. Chest pain, status post cardiac catheterization showing patent stent in the proximal LAD, possible coronary vasospasm. 2. History of recent coronary artery disease and LAD stenting. 3. Hypokalemia. 4. Mild thrombocytopenia. 5. Remote history of nicotine dependence. DISCHARGE DISPOSITION: The patient will be discharged in stable condition with guarded prognosis. HISTORY OF PRESENT ILLNESS: A 71-year-old gentleman with past medical history as above was admitted with chest pain. The patient underwent cardiac catheterization. LAD was patent. The patient underwent VQ scan which was low probability for pulmonary embolism. The patient improved significantly. Cardiology recommended outpatient treatment. On exam, vitals are stable. CARDIOVASCULAR: S1, S2. ABDOMEN: Soft. NERVOUS SYSTEM: No focal deficits. DISCHARGE ADVICE: 1. Diet is cardiac. 2. Activity limited until follow up. 3. Follow up. MEDICATIONS: 1. Alprostadil 10 mcg as before. 2. Aspirin 325 mg daily. 3. Lipitor 40 mg q.h.s 4. Krill oil 500 mg daily. 5. Zestril 5 mg p.o. b.i.d. 6. Lopressor 12.5 mg p.o. b.i.d. 7. Multivitamins 1 p.o daily. 8. Nitrostat 0.4 sublingual p.r.n. 9. Effient 10 mg p.o. 10. Zolmitriptan 5 mg b.i.d. p.r.n Follow with Dr. Maddox and Cardiology as advised. [facility]
== END 2016-10-29 14:47 | disposition home or self-care (01) | DRG 282 ==
LOC: EC 19:24 → 6SEL 22:06
PROVIDERS: ADMIT Internal Medicine; ATTEND Internal Medicine
PROC: B2111ZZ Fluoroscopy of Multiple Coronary Arteries using Low Osmolar Contrast (ICD-10-PCS; principal; 2016-10-28 10:27)
DX: I25.111 Atherosclerotic heart disease of native coronary artery with angina pectoris with documented spasm (principal); I21.4 Non-ST elevation (NSTEMI) myocardial infarction; D69.6 Thrombocytopenia, unspecified; R06.00 Dyspnea, unspecified; R00.1 Bradycardia, unspecified; N40.0 Benign prostatic hyperplasia without lower urinary tract symptoms; I10 Essential (primary) hypertension; E87.6 Hypokalemia; E78.00 Pure hypercholesterolemia, unspecified; R01.1 Cardiac murmur, unspecified; R74.8 Abnormal levels of other serum enzymes; R10.9 Unspecified abdominal pain; Z95.5 Presence of coronary angioplasty implant and graft; Z85.46 Personal history of malignant neoplasm of prostate; Z79.899 Other long term (current) drug therapy; Z79.82 Long term (current) use of aspirin; Z87.891 Personal history of nicotine dependence; Z87.448 Personal history of other diseases of urinary system; Z91.041 Radiographic dye allergy status; Z86.69 Personal history of other diseases of the nervous system and sense organs; Z79.02 Long term (current) use of antithrombotics/antiplatelets; Z82.49 Family history of ischemic heart disease and other diseases of the circulatory system
CPT/HCPCS: 36415; 71010; 78582; 80048; 80053; 80061; 82550; 82553; 83735; 84484; 85025; 85379; 85610; 85730; 93306; 94760; 96374; 99291

== ENCOUNTER 2018-08-21 20:16 | Emergency (ER) | payer MEDICARE ==
[2018-08-21 20:21] VITALS: PULSE 71
[2018-08-21] MEDS ORDERED: diphenhydrAMINE 50 MG/ML 1 ML VIAL IVP STA (20:58)
[2018-08-21] MEDS ORDERED: SODIUM CHLORIDE 0.9% 1,000 ML IV STA (20:58)
[2018-08-21] MEDS ORDERED: METOCLOPRAMIDE 5 MG/ML 2 ML VIAL IVP STA (20:58)
[2018-08-21] MEDS ORDERED: KETOROLAC 30 MG/ML 1 ML VIAL IVP STA (20:58)
--- NOTE | 2018-08-21 21:00 | ED ---
Headache HPI - General Chief Complaint: Headache Stated Complaint: migraine Time Seen by Provider: 08/21/18 20:58 Mode of arrival: ambulatory Limitations: no limitations - History of Present Illness Initial Comments: This is a 73-year-old male the ER for evaluation. Patient presents today for evaluation regarding headache history of migraines. No fevers no trauma. Patient states headache is just like prior history of migraines. Patient has nausea positive photophobia no other significant symptoms MD Complaint: headache, "migraine" -: hour(s) Onset Description: gradual Severity: mild Severity scale (1-10): 3 Quality: aching, throbbing Consistency: constant Improves With: nothing Worsens With: none Associated Symptoms: nausea, photophobia Treatments Prior to Arrival: none - Related Data Home Medications Medication Instructions Recorded Confirmed Aspirin EC [Ecotrin Low Dose] 81 mg PO DAILY 08/21/18 08/21/18 Metoprolol Tartrate 12.5 mg PO BID 08/21/18 08/21/18 Previous Rx's Medication Instructions Recorded Atorvastatin [Lipitor] 40 mg PO HS #30 tab 10/26/16 Lisinopril [Zestril] 5 mg PO DAILY #30 tab 10/26/16 Allergies Allergy/AdvReac Type Severity Reaction Status Date / Time iodine Allergy Unknown Verified 08/21/18 21:03 Iodinated Contrast- Oral and AdvReac Unknown Verified 08/21/18 21:03 IV Dye [Iodinated Contrast Media - IV Dye] Review of Systems ROS Statement: Those systems with pertinent positive or pertinent negative responses have been documented in the HPI. ROS Other: All systems not noted in ROS Statement are negative. Past Medical History Past Medical History: Chest Pain / Angina, Myocardial Infarction (ME), Prostate Disorder Additional Past Medical History / Comment(s): prostate cancer Last Myocardial Infarction Date:: 10-23-16 History of Any Multi-Drug Resistant Organisms: None Reported Past Surgical History: Heart Catheterization With Stent Additional Past Surgical History / Comment(s): stent proximal LAD Date of Last Stent Placement:: 10-25-2016 Past Psychological History: No Psychological Hx Reported Smoking Status: Former smoker Past Alcohol Use History: None Reported Past Drug Use History: None Reported - Past Family History Father Additional Family Medical History / Comment(s): dad living alone at 94, pacemaker Mother Family Medical History: Dementia General Exam Limitations: no limitations General appearance: alert, in no apparent distress Head exam: Present: atraumatic, normocephalic, normal inspection Eye exam: Present: normal appearance, PERRL, EOMI. Absent: scleral icterus, conjunctival injection, periorbital swelling ENT exam: Present: normal exam, mucous membranes moist Neck exam: Present: normal inspection. Absent: tenderness, meningismus, lymphadenopathy Respiratory exam: Present: normal lung sounds bilaterally. Absent: respiratory distress, wheezes, rales, rhonchi, stridor Cardiovascular Exam: Present: regular rate, normal rhythm, normal heart sounds. Absent: systolic murmur, diastolic murmur, rubs, gallop, clicks GI/Abdominal exam: Present: soft, normal bowel sounds. Absent: distended, tenderness, guarding, rebound, rigid Extremities exam: Present: normal inspection, full ROM, normal capillary refill. Absent: tenderness, pedal edema, joint swelling, calf tenderness Back exam: Present: normal inspection Neurological exam: Present: alert, oriented X3, CN II-XII intact Psychiatric exam: Present: normal affect, normal mood Skin exam: Present: warm, dry, intact, normal color. Absent: rash Course Vital Signs 08/21/18 08/21/18 20:19 22:42 Temperature 97.4 F L 98.8 F Pulse Rate 71 71 Respiratory 20 18 Rate Blood Pressure 167/86 146/80 O2 Sat by Pulse 99 97 Oximetry Medical Decision Making - Medical Decision Making 73 male the ER for evaluation of migraine history of migraines, not requiring imaging currently. Patient's headache is improved no neurological findings and patient can be discharged home Disposition Clinical Impression: Migraine Disposition: HOME SELF-CARE Condition: Good Instructions (If sedation given, give patient instructions): Acute Headache (ED) Is patient prescribed a controlled substance at d/c from ED?: No Referrals: Jackie Maddox III, MD [Primary Care Provider] - 1-2 days
[2018-08-21] MEDS ORDERED: MORPHINE SULFATE 4 MG/ML SYRINGE IVP STA (22:21)
[2018-08-21 22:42] VITALS: BP 146/80; RESP 18; TEMP 98.8
== END 2018-08-21 22:42 | disposition home or self-care (01) ==
LOC: EC 20:16
DX: G43.909 Migraine, unspecified, not intractable, without status migrainosus (principal); I25.2 Old myocardial infarction; Z87.891 Personal history of nicotine dependence; Z91.041 Radiographic dye allergy status; Z91.048 Other nonmedicinal substance allergy status; Z79.82 Long term (current) use of aspirin; Z79.899 Other long term (current) drug therapy; Z95.5 Presence of coronary angioplasty implant and graft
CPT/HCPCS: 99283; 96374; 96375 ×3; 96361; J2270; J1200; J2765; J1885

== ENCOUNTER → 2018-09-24 | Outpatient (CLI) | payer MEDICARE ==
--- NOTE | 2018-09-24 17:23 | CT ---
EXAMINATION TYPE: CT urogram wo/w con DATE OF EXAM: 09/24/2018 COMPARISON: None INDICATION: Gross hematuria DLP: 2593 mGycm, Automated exposure control for dose reduction was used. CONTRAST: 100 mL of Isovue 300. Study performed TECHNIQUE: Axial images were obtained from above the diaphragm to the pubic rami in the axial plane a t 5 mm thick sections. Reconstructed images are reviewed on the computer in the coronal plane. The graft Three-D reconstructed images of a CT urogram or performed. FINDINGS: Limited CT sections are obtained the lung bases. The lung bases are clear. There is a small hiatal hernia present. CT ABDOMEN: Liver: Normal Spleen: Normal Pancreas: Normal Adrenal glands: The adrenal glands are normal. Gallbladder: Normal Kidneys: No masses are evident. No hydronephrosis is present. Multiple renal cysts are present bila terally. . Reconstructed images are performed through the kidneys. Renal calyces and infundibulum an d renal pelves appear normal. The ureters follow a normal caliber and course to the pelvic inlet. The distal ureters are not well visualized. Left distal ureter is better visualized than the right. Ther e is improved visualization on the delayed images no obvious filling defects within the ureters are e vident. Aorta: Vascular calcification is within the aorta. Inferior vena cava: Normal. CT PELVIS: Loops of bowel within the abdomen and pelvis are normal. Studies performed without oral contrast limiting bowel evaluation. Appendix: Not visualized Urinary bladder: Large urinary bladder calcifications are evident best visualized on the powertrain control systems engineer image also present on early phase pelvis images. Genitourinary structures: Prostate is prominent. Osseous structures: No suspicious lytic or sclerotic lesions. IMPRESSIONS: 1. Multiple large urinary bladder calcifications. 2. CT urogram appears normal without obvious defects. 3. Multiple bilateral renal cysts are present.
== END | disposition home or self-care (01) ==
LOC: RADCTMAIN 07:46
PROVIDERS: ATTEND Urology
DX: N28.1 Cyst of kidney, acquired (principal); N32.89 Other specified disorders of bladder; R31.0 Gross hematuria; Z88.5 Allergy status to narcotic agent; Z91.048 Other nonmedicinal substance allergy status; Z91.041 Radiographic dye allergy status
CPT/HCPCS: 74178; 74400; Q9967

== ENCOUNTER → 2020-09-23 | Outpatient (CLI) | payer MEDICARE | END | disposition home or self-care (01) | CPT/HCPCS: 76536 ==

== ENCOUNTER → 2020-10-28 | Outpatient (CLI) | payer MEDICARE ==
[2020-10-28 21:39] LABS: Chol/HDL Ratio 3.73; LDL Cholesterol,Calculated 56.2 mg/dL (0.0-131.0); VLDL Calculation 25.8 mg/dL (5.00-40.00)
== END | disposition home or self-care (01) ==
LOC: LABWHC1 07:18
PROVIDERS: ATTEND Nurse Practitioner Adult Health
DX: E78.5 Hyperlipidemia, unspecified (principal)
CPT/HCPCS: 36415; 80061

== ENCOUNTER → 2021-10-01 | Outpatient (CLI) | payer MEDICARE ==
--- NOTE | 2021-10-01 13:03 | MR ---
EXAMINATION TYPE: MR Prostate wo/w con DATE OF EXAM: 10/01/2021 COMPARISON: CT urogram September 24, 2018 INDICATION: Prostate cancer. PSA: 4.3 ng/ml on September 27, 2021 Recent Biopsy and Date: October 02, 2019 Pathology Report (If Applicable): Adenocarcinoma [place] grade 3+4 = 7 involving one core approximate ly 10% of tissue measuring 1 mm in length. Left apex. TECHNIQUE: Examination was performed using a 3T MRI without an endorectal coil. Multiparametric imaging was perf ormed with T2 mutliplanar sequences, axial diffusion weighted imaging and dynamic contrast enhanced i maging, utilizing 8 mL intravenous Gadavist gadolinium contrast. FINDINGS: PROSTATE VOLUME: 5.4 cm SI x 4.2 cm AP x 5.8 cm LR Vol= 68.9 cc PSA DENSITY: 0.06 ng/ml/cc Predicted PSA equals 8.26. Enlarged prostate gland is present with thinning of the peripheral zone. No suspicious areas of dimin ished signal on ADC mapping with increased signal on DWI imaging. Heterogeneous hypertrophy of the ce ntral transitional zone without areas of indistinct hypointensity or suspicious restricted diffusion Prostate capsule is maintained. Seminal vesicles appear symmetric and within normal limits. No adjace nt adenopathy is seen. Visualized osseous structures are intact. Bladder not greatly distended with m ild to moderate wall thickening without significant trabeculation. Dependent intraluminal calculi are redemonstrated though less numerous than CT urogram 2019. IMPRESSION: Enlarged prostate consistent with BPH. Some persistent calculi in the bladder incidentall y noted. A focus of clinically significant cancer is not identified. Highest Assessment Category: 1 MRI Stage: T1c N0 M0 based on review of pelvic images. False negative rates for MRI range from 5-20% depending on risk profile. Assessment Categories: 1 ? Very low (clinically significant cancer is highly unlikely to be present) 2 ? Low (clinically significant cancer is unlikely to be present) 3 ? Intermediate (the presence of clinically significant cancer is equivocal) 4 ? High (clinically significant cancer is likely to be present) 5 ? Very high (clinically significant cancer is highly likely to be present)
== END | disposition home or self-care (01) ==
LOC: RADMRIMAIN 08:56
PROVIDERS: ATTEND Urology
DX: C61 Malignant neoplasm of prostate (principal)
CPT/HCPCS: 72197; A9585